=== PATIENT | female | born 1985 | race Caucasian/White ===

== ENCOUNTER 2022-07-08 07:12 | Outpatient (CLI) | payer OTHER, SELFPAY ==
--- NOTE | ~2022-07-08 | US_ITS ---
Pelvic ultrasound. Clinical History: First trimester , threatened miscarriage Technique: Realtime transabdominal and transvaginal scanning of the pelvis was performed. Color flow Doppler and Doppler spectral analysis were performed. Findings: The uterus is anteverted, and contains an intrauterine gestational sac. [place]-rump length o f 2 mm corresponds to an estimated gestational age of 5 weeks 5 days. The right ovary measures 2.7 x 1.7 x 2.0 cm. No significant right ovarian or adnexal mass is seen. The left ovary measures 1.8 x 0.7 x 1.7 cm. No significant left ovarian or adnexal mass is seen. There is no evidence of free fluid in the cul de sac. Impression: Intrauterine gestational sac with estimated gestational age of 5 weeks 5 days based on crown-rump silke gth. No cardiac activity seen. This early is of uncertain viability. Lack of cardiac activi ty may be related to the very early gestational age. Continued follow up with serial beta hCG advised . Consider short-term follow-up ultrasound in 5-7 days to reassess for further development pole and cardiac activity. Reviewed, dictated and finalized at [facility]. Impression: Intrauterine gestational sac with estimated gestational age of 5 weeks 5 days b ased on crown-rump length. No cardiac activity seen. This early is of uncertain viability. Lack of cardiac activity may be related to the very early gestational age. Continued follow up with serial beta hCG advised. Consider sh ort-term follow-up ultrasound in 5-7 days to reassess for further development f etal pole and cardiac activity.
== END 2022-07-08 07:13 | disposition home or self-care (01) ==
PROVIDERS: Visit Provider Obstetrics & Gynecology
DX: O20.0 Threatened abortion (principal); Z3A.01 Less than 8 weeks gestation of pregnancy
CPT/HCPCS: 36415; 76801; 76817; 85461; 86850; 86900; 86901

== ENCOUNTER 2022-07-10 13:31 | Outpatient (CLI) | payer OTHER, SELFPAY | END 2022-07-10 13:32 | disposition home or self-care (01) | LOC: ANHLAB 13:33 | PROVIDERS: Visit Provider Obstetrics & Gynecology | DX: O20.0 Threatened abortion (principal); Z3A.00 Weeks of gestation of pregnancy not specified | CPT/HCPCS: 36415; 84702 ==

== ENCOUNTER 2022-07-12 17:14 | Outpatient (CLI) | payer OTHER, SELFPAY | END 2022-07-12 17:15 | disposition home or self-care (01) | PROVIDERS: Visit Provider Obstetrics & Gynecology | DX: O20.0 Threatened abortion (principal); Z3A.00 Weeks of gestation of pregnancy not specified | CPT/HCPCS: 36415; 84702 ==

== ENCOUNTER 2022-07-22 10:11 | Outpatient (CLI) | payer OTHER, SELFPAY ==
--- NOTE | ~2022-07-22 | US_ITS ---
US breast RT limited INDICATION: Palpable right breast abnormality TECHNIQUE: Dedicated Limited right breast ultrasound COMPARISON: No prior studies for comparison. FINDINGS: At 7:00, 1 cm from the nipple, there is a minimally complicated 7 mm cyst with posterior ac oustic enhancement and no associated vascularity. At 9:00 in the area of palpable concern there are n o discrete masses. IMPRESSION: 1: Benign-appearing minimally complicated right breast cysts at 7:00, 1 cm from the nipple measuring 7 mm. No sonographic evidence for malignancy. Recommend follow-up clinical management with repeat ult rasound and/or mammogram as clinically warranted by physical examination changes. BI-RADS CATEGORY 2 - BENIGN FINDINGS Reviewed, dictated and finalized at location A. IMPRESSION: 1: Benign-appearing minimally complicated right breast cysts at 7:00, 1 cm from the nipple measuring 7 mm. No sonographic evidence for malignancy. Recommend f ollow-up clinical management with repeat ultrasound and/or mammogram as clinica lly warranted by physical examination changes. BI-RADS CATEGORY 2 - BENIGN FINDINGS
== END 2022-07-22 10:12 | disposition home or self-care (01) ==
LOC: ANHIMG 10:15
PROVIDERS: Visit Provider Advanced Practice Midwife
DX: N63.0 Unspecified lump in unspecified breast (principal)
CPT/HCPCS: 76642

== ENCOUNTER 2022-07-22 22:55 | Emergency (ER) | payer OTHER, SELFPAY ==
[2022-07-22 23:06] VITALS: BP 112/80; PULSE 92; RESP 18; TEMP 35.9; O2SAT 100
== END 2022-07-22 23:00 | disposition left against medical advice (07) ==
LOC: ANHED 23:19
DX: R11.2 Nausea with vomiting, unspecified (principal)
CPT/HCPCS: 99199

== ENCOUNTER 2023-02-25 06:36 | Inpatient (IN) | payer OTHER, SELFPAY ==
[2023-02-25] VITALS (233 sets, daily range): BP systolic 76–136; BP diastolic 48–111; PULSE 67–226; RESP 18; TEMP 36.4–37.3; O2SAT 86–100; BMI 25.3
--- NOTE | 2023-02-25 07:41 | LDADM ---
This patient, Maxim Mauricio, was admitted to Labor/Delivery/Recovery 104 on 02/25/23 at 06:36. Plans for labor, pain management and were discussed with patient. Patient/family oriented to hospital policies and general routines including ID bracelet, bed and alarms, visiting hours, pain management, procedures, bathroom and other care routines, personal items, smoking policy, room service/diet and guest tray routines, security routines, and visiting hours. Patient/Family are encouraged to report perceived risks to care and to ask questions if they do not understand what they are told or what they should do. See OBIX for further documentation.
[2023-02-25 07:47] LABS: Basophils Percent Auto 0.2 % (0.2-1.2); Eosinophils Absolute Auto 0.1 K/mm3 (0-0.3); Eosinophils Percent Auto 0.7 % (0-4.4); Hemoglobin 10.8 g/dL (12.0-15.0); Immature Granulocyte Absolute 0.07 K/mm3 (0.00-0.031); Immature Granulocyte Percent A 0.6 % (0-0.5); Lymphocytes Absolute Auto 1.83 K/mm3 (0.9-3.2); Mean Corpuscular HGB Conc 33.8 g/dl (32-36); Mean Corpuscular Hemoglobin 31.6 pg (26-34); Mean Corpuscular Volume 93.6 fl (80-100); Mean Platelet Volume 9.8 fl (7.4-10.4); Monocytes Absolute Auto 1.1 K/mm3 (0.1-0.6); Monocytes Percent Auto 8.8 % (2.6-8.5); Neutrophils Absolute Auto 9.1 K/mm3 (1.3-6.7); Neutrophils Percent Auto 74.7 % (45.5-73.1); Platelet Count Result 317 k/mm3 (150-375); Red Blood Count 3.42 M/mm3 (4.2-5.4); Red Cell Distribution Width 13.9 % (11.5-14.5); White Blood Count 12.2 K/mm3 (4.5-10.0)
--- NOTE | 2023-02-25 07:58 | WPDHPUPDATE1 ---
History and Physical Update Update Date/Time: 02/25/23 07:58 37-year-old Primiparous female with elective induction of labor at term. 80%, +1, cm. Reassuring status, Pitocin, epidural available, expectant management. History and Physical has been reviewed, including an updated exam of the patient. There are NO changes in the patient's condition. Risks, benefits, and alternatives have been discussed and questions answered. Patient agrees to proceed with procedure.
[2023-02-25] MEDS: OXYTOCIN 30 UNITS/NS 500 ML 30 UNITS/500 ML BAG 6 UNITS IV CONT (08:18)
[2023-02-25] MEDS: LACTATED RINGERS 1,000 ML 125 ML IV CONT ×2 (08:18→11:24)
[2023-02-25 08:30] LABS: HIV 1/2 Ab P24 Ag Result Negative (Negative)
--- NOTE | 2023-02-25 10:26 | WPDANESEPP ---
Anes - Eval Pre Procedure Procedure: labor epidural Date/Time: 02/25/23 10:26 Pre Op Diagnosis: Induction of Labor Patient Data Age: 37 Gender: F Height: 1.65 m Weight: 69 kg Last Vital Signs Temp 36.6 C 02/25/23 09:32 Pulse 86 02/25/23 10:18 Resp 18 02/25/23 08:00 BP 124/85 02/25/23 10:18 Pulse Ox 96 02/25/23 10:22 O2 Del Method Room Air 02/25/23 07:34 Allergies Allergy/AdvReac Type Severity Reaction Status Date / Time sulfamethoxazole Allergy Hives Verified 02/25/23 08:00 [From Bactrim] trimethoprim [From Bactrim] Allergy Hives Verified 02/25/23 08:00 Home Medications Medication Instructions Recorded Confirmed Type alprazolam 0.5 mg tablet 0.5 mg PO TID PRN Sleep 02/25/23 02/25/23 History cyclobenzaprine 10 mg tablet 10 mg PO TID PRN restless legs 02/25/23 02/25/23 History omeprazole 40 mg capsule,delayed 40 mg PO DAILY 02/25/23 02/25/23 History release Laboratory Tests 02/25/23 07:18 WBC 12.2 H K/mm3 (4.5-10.0) RBC 3.42 L M/mm3 (4.2-5.4) Hgb 10.8 L g/dL (12.0-15.0) Hct 32.0 L % (37.0-47.0) MCV 93.6 fl (80-100) MCH 31.6 pg (26-34) MCHC 33.8 g/dl (32-36) RDW 13.9 % (11.5-14.5) Plt Count 317 k/mm3 (150-375) MPV 9.8 fl (7.4-10.4) Immature Gran % (Auto) 0.6 H % (0-0.5) Neut % (Auto) 74.7 H % (45.5-73.1) Lymph % (Auto) 15.0 L % (18.3-44.2) [place] % (Auto) 8.8 H % (2.6-8.5) Eos % (Auto) 0.7 % (0-4.4) Baso % (Auto) 0.2 % (0.2-1.2) Lymph # (Auto) 1.83 K/mm3 (0.9-3.2) [place] # (Auto) 1.1 H K/mm3 (0.1-0.6) Eos # (Auto) 0.1 K/mm3 (0-0.3) Baso # (Auto) 0.0 K/mm3 (0.0-0.1) Abs Immat Gran (auto) 0.07 H K/mm3 (0.00-0.031) Absolute Neuts (auto) 9.1 H K/mm3 (1.3-6.7) Absolute Nucleated RBC 0.0 K/mm3 (0.0-0.012) Nucleated RBC % 0.0 % (0.0-0.2) RPR Pending HIV 1&2 Ab/P24 Ag 4thGn Negative (Negative) Blood Type O Positive Antibody Screen Negative Patient hx anesthesia problems: none Family hx anesthesia problems: none Results Review: All pre-operative results and documents have been reviewed as part of the pre-operative evaluation. [facility] Past Medical History Medical History (Updated 02/25/23 @ 10:26 by Jennifer De Guzman CRNA) Anxiety Asthma Social History Social History Smoking status: Current every day smoker Tobacco type: cigarettes Second hand tobacco smoke exposure: Yes Substance use: current Lack of Transportation: No Lack of Food: Never True Current Housing: I Have Housing Concerned About Future Housing: No Difficulty Paying Gas/Electric Bills: No Difficulty Paying for Meds: No Currently Unemployed: No Education: Associate Degree Difficulty w/ Childcare or Family Care: No Spiritual care concerns: No Exam Day of Procedure 02/25/23 10:26 Patient weight: overweight Heart: regular rate and rhythm Lungs: normal air movement Airway: Mallampati scale Neurological: alert and oriented
[2023-02-25 15:29] LABS: Rapid Plasma Reagin Non-Reactive (NonReactive)
[2023-02-25] MEDS: NICOTINE (*PBKC) 7 MG PATCH 1 PATCH TRANSDERM (18:52)
[2023-02-25] MEDS: LORATADINE 10 MG TABLET PO (19:34)
[2023-02-26] VITALS (36 sets, daily range): BP systolic 97–145; BP diastolic 61–126; PULSE 25–148; RESP 16–20; TEMP 36.4–36.7; O2SAT 81–100
[2023-02-26] MEDS: diphenhydrAMINE HCl INJ 50 MG/ML VIAL (00:25)
[2023-02-26] MEDS: LACTATED RINGERS 1,000 ML 125 ML IV CONT (00:27)
--- NOTE | 2023-02-26 01:52 | PM.OBPRVD ---
OB - Vaginal Delivery Note Procedure Delivery date: 02/26/23 Induction method: AROM and Per Pitocin Protocol Delivery monitor: External FHT and External Uterine Route of delivery: Laceration Description: Vaginal (2nd degree) Quantitative Blood Loss (ml): 100 Disposition: Floor Complications: No immediate complications Baby Date of : 02/26/23 Time of : 01:41 Weeks of gestation at delivery: 39 Infant gender: Female Weight (pounds): 6 Weight (ounces): 0 presentation: vertex score one minute: 8 score five minutes: 9
[2023-02-26] MEDS: ACETAMINOPHEN 500 MG TABLET 1000 MG PO ×3 (02:24→20:46)
[2023-02-26] MEDS: OXYTOCIN 30 UNITS/NS 500 ML 30 UNITS/500 ML BAG 125 UNITS IV CONT (02:25)
--- NOTE | 2023-02-26 04:33 | OBPPTRN ---
Patient transferred to post room # 281 via (wheelchair ). Support person present.
[2023-02-26] MEDS: IBUPROFEN 600 MG TABLET PO ×2 (05:43→12:36)
[2023-02-26] MEDS: PANTOPRAZOLE 40 MG TABLET PO ×2 (09:48→20:46)
[2023-02-26] MEDS: MULTIVIT/MIN/PREN/FOL AC/IRON TABLET 1 TAB PO (09:48)
[2023-02-26] MEDS: DOCUSATE SODIUM 100 MG CAPSULE PO (09:48)
[2023-02-26] MEDS: WITCH HAZEL 40 PADS 1 PAD TOPICAL (19:09)
[2023-02-26] MEDS: BENZOCAINE 20% AER SPR (*SP) 56 GM CAN 1 SPRAY TOPICAL (19:09)
[2023-02-26] MEDS: diphenhydrAMINE HCl CAP 25 MG CAPSULE PO (23:45)
[2023-02-27 00:30] VITALS: BP 108/66; PULSE 90; RESP 18; TEMP 36.8; O2SAT 99
[2023-02-27] MEDS: IBUPROFEN 600 MG TABLET PO ×3 (03:38→16:30)
[2023-02-27 03:59] LABS: Hematocrit 26.6 % (37.0-47.0); Hemoglobin 8.9 g/dL (12.0-15.0)
--- NOTE | 2023-02-27 07:23 | PM.OBPNVD ---
OB - PN: Subj Subjective Date/time seen: 02/27/23 07:23 Patient comments: no complaints, pain well controlled, incisional pain, tolerating diet and flatus present OB - PN: Obj Data Labs 02/27/23 03:39 Labs: Laboratory Results - last 24 hr 02/27/23 03:39 Hgb 8.9 L Hct 26.6 L OB - PN A/P Plan day: 1 Plan: routine care Comments: No problems, routine care Time Spent With Patient Time: Total time spent is greater than 50% in coordination of care (as documented) at patient's floor/unit and/or counseling patient: Exam Const: General: comfortable, no acute distress and alert Resp: Effort & Inspection: normal respiratory effort Auscultation: no crackles, no rales and no rhonchi Cardio: Rate: regular rate Heart sounds: no click, no murmurs and no rubs GI: Inspection: non-distended GI Palp: No Tenderness to palpation present (GI) Auscultation: normal bowel sounds Other: Incision - CDI Extrem: General: normal to inspection, no pedal edema and no calf tenderness
--- NOTE | 2023-02-27 07:24 | PM.OBDSVD ---
DS: Admitting Diagnosis Discharge Date February 27, 2023 Admitting Diagnosis term DS: Discharge Diagnosis Discharge Diagnosis (1) Term delivered: Code(s): O80 - Encounter for full-term uncomplicated delivery Status: Acute OB - DS: Summary OB Procedures : None OB Procedures Intrapartum: Spontaneous Vag Delivery OB Procedures: : None Peripartum Data Laceration Description: Vaginal (2nd degree) Time Spent with Patient Time attestation: Total time spent providing and/or coordinating discharge services: DS: Data Data Completed and Pending Labs on day of discharge: Labs from last 24 hours 02/27/23 03:39 Hgb 8.9 L Hct 26.6 L Discharge Plan Discharge Discharging Clinician: Abby Osorio Patient Disposition: Home, Self-Care Activity: pelvic rest Diet: regular Patient Instructions: Antibiotic Form, How to Stop Smoking (GEN), Cigarette Smoking and Your Health (GEN) Stand Alone Forms: General Discharge Information Follow-up/Referrals: Abby Osorio MD [Physician] - Discharge Medications: Continued cyclobenzaprine 10 mg tablet 10 mg PO TID PRN (Reason: restless legs) omeprazole 40 mg capsule,delayed release(DR/EC) 40 mg PO DAILY alprazolam 0.5 mg tablet 0.5 mg PO TID PRN (Reason: Sleep) Date of admission: 02/25/23 06:36 Primary Care Provider: PHYSICIAN,ASSISTED LIVING COORDINATOR Admitting Provider: Abby Osorio Attending physician on admission: Abby Osorio Condition: Stable
[2023-02-27] MEDS: DOCUSATE SODIUM 100 MG CAPSULE PO ×2 (08:30→16:30)
[2023-02-27] MEDS: PANTOPRAZOLE 40 MG TABLET PO ×2 (08:30→21:36)
[2023-02-27] MEDS: MULTIVIT/MIN/PREN/FOL AC/IRON TABLET 1 TAB PO (08:30)
[2023-02-27] MEDS: POLYSACCHARIDE IRON COMPLEX 150 MG CAPSULE PO ×2 (08:30→16:30)
[2023-02-27] MEDS: HYDROcodone/acetaminophen (*CRX) 5-325 MG TABLET 1 TAB PO ×3 (09:40→21:36)
[2023-02-27 10:00] VITALS: BP 116/68; PULSE 93; RESP 16; TEMP 36.4; O2SAT 98
--- NOTE | 2023-02-27 13:59 | WPDANLDPN2 ---
Anes-Prog Note L&D Date/Time: 02/27/23 13:59 Comfortable throughout: labor and delivery Neuraxial method: epidural Epidural/Spinal procedure site: clean & non-tender Neuro status: Neuro function grossly intact. Cardiovascular status: normal Respiratory status: normal Airway patency: baseline Mental status: baseline Post-Op hydration status: normal Vital Signs: Last Vital Signs Temp 36.8 C 02/27/23 00:30 Pulse 90 02/27/23 00:30 Resp 18 02/27/23 00:30 BP 108/66 02/27/23 00:30 Pulse Ox 99 02/27/23 00:30 O2 Del Method Room Air 02/26/23 08:00 Pain score (VAS): 2/10 Post-procedural complaints: pruritis Patient feedback: Patient satisfied with anesthetic care. Other findings: itching treated with antihistamine
[2023-02-27 16:30] VITALS: BP 118/72; PULSE 76; RESP 16; TEMP 36.6
[2023-02-27 19:25] VITALS: BP 104/55; PULSE 87; RESP 18
[2023-02-27] MEDS: WITCH HAZEL 40 PADS 1 PAD TOPICAL (21:37)
[2023-02-28] MEDS: HYDROcodone/acetaminophen (*CRX) 5-325 MG TABLET 1 TAB PO ×2 (04:03→07:50)
[2023-02-28] MEDS: IBUPROFEN 600 MG TABLET PO (04:04)
--- NOTE | 2023-02-28 04:20 | PC.NURSE ---
Patient viewed the discharge video Mother & Baby Care, The First Two Weeks . Patient was given the opportunity and encouraged to ask questions. Patient verbalized understanding of information shared and has been given the mother/baby guide for home reference.
[2023-02-28 07:30] VITALS: BP 103/63; PULSE 72; RESP 16; TEMP 36.6; O2SAT 98
[2023-02-28] MEDS: POLYSACCHARIDE IRON COMPLEX 150 MG CAPSULE PO (07:49)
[2023-02-28] MEDS: DOCUSATE SODIUM 100 MG CAPSULE PO (07:50)
--- NOTE | 2023-02-28 07:57 | P.PNOB_ITS ---
OB - PN: Subj Subjective Date/time seen: 02/28/23 07:57 Patient comments: no complaints, pain well controlled, incisional pain, tolerating diet and flatus present OB - PN: Obj Data Labs 02/27/23 03:39 OB - PN A/P Plan day: 1 Plan: routine care Comments: No problems, routine care Time Spent With Patient Time: Total time spent is greater than 50% in coordination of care (as documented) at patient's floor/unit and/or counseling patient: Exam Const: General: comfortable, no acute distress and alert Resp: Effort & Inspection: normal respiratory effort Auscultation: no c rackles, no rales and no rhonchi Cardio: Rate: regular rate Heart sounds: no click, no murmurs and no rubs GI: Inspection: non-distended GI Palp: No Tenderness to palpation present (GI) Auscultation: normal bowel sounds Other: Incision - CDI Extrem: General: normal to inspection, no pedal edema and no calf tenderness
--- NOTE | 2023-02-28 07:58 | P.DS_ITS ---
DS: Admitting Diagnosis Discharge Date February 28, 2023 Admitting Diagnosis term OB - DS: Summary OB Procedures : None OB Procedures Intrapartum: Spontaneous Vag Delivery OB Procedures: : None Peripartum Data Laceration Description: Vaginal (2nd degree) Time Spent with Patient Time attestation: Total time spent providing and/or coordinating discharge services: Discharge Plan Discharge Discharging Clinician: Abby Osorio Patient Disposition: Home, Self-Care Activity: pelvic rest Diet: regular Patient Instructions: Antibiotic Form, How to Stop Smoking (GEN), Cigarette Smoking and Your Health (GEN) Stand Alone Forms: General Discharge Information Follow-up/Referrals: Abby Osorio MD [Physician] - Discharge Medications: Continued cyclobenzaprine 10 mg tablet 10 mg PO TID PRN (Reason: restless legs) omeprazole 40 mg capsule,delayed release(DR/EC) 40 mg PO DAILY alprazolam 0.5 mg tablet 0.5 mg PO TID PRN (Reason: Sleep) Date of admission: 02/25/23 06:36 Primary Care Provider: PHYSICIAN,ENGINEER TECHNICIAN Admitting Provider: Abby Osorio Attending physician on admission: Abby Osorio Condition: Stable
[2023-03-01 11:15] VITALS: BP 122/81; PULSE 100; RESP 18; TEMP 36.9; O2SAT 100
== END 2023-02-28 11:12 | disposition home or self-care (01) | DRG 807 ==
LOC: ANHLDR 06:43 → ANHOB2 02-26 04:36
PROVIDERS: Admitting Provider Obstetrics & Gynecology; Visit Provider Obstetrics & Gynecology
DX: O36.5930 Maternal care for other known or suspected poor fetal growth, third trimester, not applicable or unspecified (principal); Z37.0 Single live birth; Z3A.39 39 weeks gestation of pregnancy; O70.1 Second degree perineal laceration during delivery
CPT/HCPCS: 36415; 85014; 85018; 85025; 86592; 86703; 86850; 86900; 86901; A9270; G0432; J1200; J2590; J2795; J7120

== ENCOUNTER 2024-07-10 05:28 | Emergency (ER) | payer OTHER, SELFPAY ==
--- NOTE | ~2024-07-10 | CT_ITS ---
EXAMINATION: CT facial bones wo con DATE: 07/10/2024 05:56 INDICATION: Face injury. TECHNIQUE: Computed tomography (CT) of the facial bones and maxillofacial region was performed withou t intravenous contrast. Automated exposure control and iterative reconstruction technique were employ ed. The dose-length product was 327.97 mGy-cm. COMPARISON: None. FINDINGS: There is left periorbital soft tissue swelling with hematoma. The orbits are normal. There is rightward deviation of the nasal septum. No fracture. There is extensive dental disease. There is mild cervical spondylosis. IMPRESSION: 1. No fracture. 2. Extensive dental disease. Reviewed, dictated and finalized at location A.
--- NOTE | ~2024-07-10 | XR_ITS ---
EXAMINATION: XR hand LT min 3V DATE: 07/10/2024 06:10 INDICATION: Left hand injury and pain. TECHNIQUE: 3 views of left hand were obtained. COMPARISON: None. FINDINGS: Alignment is normal. No fracture. Joint spaces are normal. IMPRESSION: 1. No fracture. Reviewed, dictated and finalized at location A. IMPRESSION: 1. No fracture.
--- NOTE | ~2024-07-10 | CT_ITS ---
EXAMINATION: CT wrist LT wo con DATE: 07/10/2024 06:33 INDICATION: Left wrist injury. TECHNIQUE: Computed tomography (CT) of the left wrist was performed without intravenous contrast. Aut omated exposure control and iterative reconstruction technique were employed. The dose-length product was 365.01 mGy-cm. COMPARISON: Left wrist radiographs 07/10/2024 FINDINGS: Alignment is normal. There is a nondisplaced fracture involving dorsal cortex of distal rad ius. Ulnar styloid is normal. Joint spaces are normal. IMPRESSION: 1. Nondisplaced fracture involving dorsal cortex of distal radius. Reviewed, dictated and finalized at location A.
--- NOTE | ~2024-07-10 | CT_ITS ---
EXAMINATION: CT brain wo con DATE: 07/10/2024 05:56 INDICATION: Head injury. TECHNIQUE: Computed tomography (CT) of the head was performed without intravenous contrast. The mA wa s adjusted according to patient size. Iterative reconstruction technique was employed. The dose-lengt h product was 681.00 mGy-cm. COMPARISON: None FINDINGS: There is no intracranial hemorrhage, acute infarction, or abnormal intracranial mass lesion . The ventricles are normal in size. The orbits are normal. The paranasal sinuses are clear. The mast oid air cells are normal. There is left periorbital soft tissue swelling with hematoma. IMPRESSION: 1. Normal brain. Reviewed, dictated and finalized at location A. IMPRESSION: 1. Normal brain.
--- NOTE | ~2024-07-10 | XR_ITS ---
EXAMINATION: XR wrist LT min 3V DATE: 07/10/2024 06:11 INDICATION: Left wrist injury and pain. TECHNIQUE: 4 views of left wrist were obtained. COMPARISON: None. FINDINGS: Alignment is normal. There is a possible nondisplaced fracture involving Angelito's tubercle of distal radius seen on a single view. There is mild osteoarthritis of first carpometacarpal joint. IMPRESSION: 1. Possible nondisplaced fracture involving Angelito's tubercle of distal radius seen on a single view. Consider CT. Reviewed, dictated and finalized at location A.
--- OUTSIDE RECORDS SUMMARY | 2024-07-10 05:31 | XMS_ITS | Clinical Summary ---
Author Organization [facility] Address [address] [place] [address] Care Team Providers Care Enterprise Services Manager Name Role Phone Raza Schmidt MD Primary Care Provider [phone] Allergies Active Allergy Reactions Criticality Noted Date Comments Adhesive Tape-Silicones Other (See comments) 07/27/2011 Reaction: Rash, Sulfamethoxazole-Trimethop rim Hives,Unknown Medium 03/18/2015 Latex Rash Medium 08/11/2022 Prednisone Prochlorperazine Unknown Sulfasalazine Urticaria Medium 02/22/2015 Medications ALPRAZolam (ALPRAZolam Intensol) 1 mg/mL concentrate take 0.25 milliliter by oral route 3 times every day mixed with water, juice, soda, soda-like beverage, applesauce or pudding 0 0 5 Active rizatriptan (MAXALT) 5 mg tablet 5 mg. 0 0 5 Active albuterol (PROVENTIL,VENT MALDONADO) 2.5 mg /3 mL (0.083 %) nebulizer solution inhale 3 milliliter by nebulization route 3 times every day 0 vial 0 5 Active oxyCODONE-aceta minophen (ROXICET) 5-325 mg/5 mL solution take 5 milliliter by oral route every 6 hours as needed 0 0 5 Active nystatin 100,000 unit/mL suspension take 5 milliliter by oral route 4 times every day 0 0 5 Active montelukast (SINGULAIR) 10 mg tablet TAKE ONE TABLET BY MOUTH EVERY DAY 30 10 5 Active fluticasone-steven anterol (BREO ELLIPTA) 200-25 mcg/dose diskus inhaler puff 1 by oral route every day 3 Inhaler 3 7 Active buprenorphine-n aloxone (SUBOXONE) 8-2 mg per SL tablet TAKE 1 TABLET UNDER TONGUE TWICE A DAY. 1 8 Active cetirizine (ZyrTEC) 10 mg tablet Active dextroamphetami ne-amphetamine (ADDERALL) 30 mg tablet Take 1 tablet (30 mg total) by mouth daily 0 8 Active triamcinolone (KENALOG) 0.1 % ointmentIndicat ions:Other eczema Apply topically 2 (two) times a day as needed for rash. 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 Overview (07/23/2016): Sleep disorder breathing Chronic obstructive pulmonary disease 07/18/2015 Overview (07/23/2016): Chronic asthmatic bronchitis Tobacco smoking behavior - finding 07/18/2015 Overview (07/23/2016): Smoking addiction Atopic rhinitis 07/18/2015 Overview (07/23/2016): Allergic rhinitis, unspecified allergic rhinitis type Abnormal computed tomography scan 12/05/2014 Overview (07/23/2016): Abnormal chest CT Rhinitis 12/05/2014 Overview (07/23/2016): Rhinitis Chronic pain 06/10/2014 Overview (07/23/2016): Chronic pain Migraine 01/10/2012 Overview (07/23/2016): Migraine Endometriosis 01/10/2012 Overview (07/23/2016): Endometriosis Encounters Date Type Department Care Team Description 04/16/2024 3:45 PM GINGER FARMER Office Visit [facility] Care at [address] [address] Aretha Rojas NP Influenza A (Primary Dx) from Last 3 Months Surgical History Surgery Date Site/Laterality Comments LAPAROSCOPY laproscopy OTHER SURGICAL HISTORY endometerosis: laproscopy x 3 OTHER SURGICAL HISTORY Hysteroscopies, cysts CA LAPS ABD PRTM&OMENTUM DX W/WO SPEC BR/WA SPX Laparoscopy (Diagnostic) - [phone] (Added by TW Conv) [place] UNLISTED PX FEMALE GENITA L SYSTEM NONOBSTETRICAL Gynecologic Surgery - cyst removal (Added by TW Conv) Medical History Medical History Date Comments Hx Other Medical endometerosis; Comments: AOB 06/10/2014 - Sleep apnea Sleep apnea Asthma Asthma Anxiety disorder Anxiety Hx Other Medical Endometriosis, chronic bronchitis; Comments: THS 12/05/2014 - Hx Other Medical Syncope; Commen ts: THS 12/05/2014 - Hx Other Medical Thrush; Comment s: THS 12/05/2014 - Endometriosis of uterus Adenomyo sis - (Added by TW Conv) Family History Medical History Relation Name Comments Colon cancer Maternal Grandmother Cancer, colon; COPD Mother COPD; Breast cancer Mother's Sister 1 Cancer, b reast; Ovarian cancer Mother's Sister 2 Ovarian cancer; Relation Name Status Comments Maternal Grandmother Mother Mother's Sister 1 Mother's Sister 2 Social History Tobacco Use Types Packs/Day Years Used Date Smoking Tobacco: Every Day Smokeless Tobacco: Former Comments:Smoking History Pac ks/day: 1 Packs Alcohol Use Standard Drinks/Week Comments Yes 0 (1 standard drink = 0.6 oz pur e alcohol) Comments No Sex and Gender Information Value Date Recorded Sex Assigned at Not on file Legal Sex Female 9:02 AM GINGER FARMER Gender Identity Not on file Sexual Orientation Not on file Obstetrics History Last Filed Vital Signs Vital Sign Reading Time Taken Comments Blood Pressure 110/68 04/16/2024 4:11 PM GINGER FARMER Pulse 80 04/16/2024 4:11 PM GINGER FARMER Temperature 37.1 C (98.8 F) 04/16/2024 4:11 PM GINGER FARMER Respiratory Rate 18 04/16/2024 4:11 PM GINGER FARMER Oxygen Saturation 98% 04/16/2024 4:11 PM GINGER FARMER Inhaled Oxygen Concentration - - Weight 61.7 kg (136 lb) 04/16/2024 4:11 PM GINGER FARMER Height 165.1 cm (5' 5 ) 04/05/2019 1:00 AM GINGER FARMER Body Mass Index 22.63 04/05/2019 1:00 AM GINGER FARMER Plan of Treatment Health Maintenance Due Date Last Done Comments Cervical Cancer Screening 1985 Depression Screening 1985 Hepatitis C Screening 1985 Varicella Vaccines (1 of 2 - 13+ 2-dose series) 1998 Hepatitis B Screening 12/02/2003 Regular Well Visit/Exam 18-64 12/02/2003 Pneumococcal vaccine <65 (1 of 2 - PCV) 2004 Influenza Vaccine (#1) 2023 01/03/2023 DTaP/Tdap/Td Vaccine (2 - Td or Tdap) 01/03/2033 01/03/2023 HPV Vaccines Aged Out No longer eligi ble based on patient's age to complete this topic Procedures Procedure Name Priority Date/Time Associated Diagnosis Comments POCT RAPID RSV (CPT 36296) Routine 04/16/2024 4:28 PM GINGER FARMER Influenza A POCT RAPID STREP Routine 04/16/2024 4:25 PM GINGER FARMER Influenza A POC INFLUENZA A/B, COVID-19 ANTIGEN Routine 04/16/2024 4:24 PM GINGER FARMER Influenza A from Last 3 Months Results * POCT rapid RSV (04/16/2024 4:28 PM GINGER FARMER) Rapid RSV, POC Negative Negative Lot Number 1 QC Control Line Acceptable Swab 04/16/2024 4:28 PM GINGER FARMER Aretha Rojas REDIPPER POINT OF CARE TEST ORDERABLES F inal Result * POCT rapid strep A (04/16/2024 4:25 PM GINGER FARMER) Rapid Strep A, POC Negative Negative Swab 04/16/2024 4:25 PM GINGER FARMER Aretha Rojas REDIPPER POINT OF CARE TEST ORDERABLES F inal Result * (ABNORMAL) POC Influenza A/B, COVID-19 antigen (04/16/2024 4:24 PM GINGER FARMER) Influenza A Ag, POC Positive(A) Negative [facility] Influenza B Ag, POC Negative Negative [facility] COVID-19 Ag POC Presumptive Negative Presumptive Negative, Invalid [facility] Nasal 04/16/2024 4:24 PM GINGER FARMER Aretha Rojas REDIPPER POINT OF CARE TEST ORDERABLES F inal Result Performing Organization Address City/State/[facility] Co de Phone Number [facility] [address] [place] [address], [facility] from Last 3 Months Insurance [employer] OPEN ACCESS [employer] OPEN ACCESS Care Teams Enterprise Services Manager Relationship Specialty Start Date End Date Raza Schmidt MD PCP - General 12/25/14
--- OUTSIDE RECORDS SUMMARY | 2024-07-10 05:31 | XMS_ITS | Clinical Summary ---
Author Organization [facility] Address [address] [place] [address] Care Team Providers Care Iron Handler Name Role Phone Cory Ho MD Primary Care Provider [phone] Source Comments [facility] Affiliates and Associated Physician Practices is amultiple site organization consisting of ambulatory clinics and hospital sitesin [place], [place], [place] and [place]. This disclosure is being madepursuant to the Care Everywhere program and may not contain all information available regarding this patient. Last updated 18.[facility] Allergies Active Allergy Reactions Criticality Noted Date Comments Adhesive Sensitivity 07/27/2011 Sulfamethoxazole W-Trimethoprim 04/2014 Latex Rash Medium 08/11/2022 Sulfa Drugs Urticaria 02/22/2015 Medications * Be aware that medications may not be up to date on this document. Alwaysverify current medications with the patient. Medication Sig Dispensed Refills Start Date End Date Status predniSONE (DELTASONE) 50 MG tablet Take 1 Tab by mouth once daily 5 Tab 0 02/22/2015 Active Additional Information Patient not taking.Reported on 08/11/2022 ibuprofen (MOTRIN) 600 MG tablet Take 1 Tab by mouth every 6 hours as needed for Pain 20 Tab 0 03/19/2015 Active Additional Information Patient not taking.Reported on 08/11/2022 Vit-DSS-Fe Fum-FA ( vitamin with iron) tabletIndications:Pr egnancy Take 1 (one) tablet by mouth once daily Reasons: Active albuterol HFA (Proventil; Ventolin; Proair) 108 (90 Base) MCG/ACT inhalerIndications:A sthma Inhale 2 (two) puffs by mouth every 6 hours as needed for Shortness of Breath, Wheezing or Cough Reasons: Asthma Active metoclopramide (Reglan) 5 MG tablet Take 1 (one) tablet by mouth 3 times daily before meals Active Active Problems Problem Noted Date Diagnosed Date History of endometrial ablation 09/14/2022 Advanced maternal age, primi in second trimester, antepartum 09/14/2022 Advanced maternal age, 1st , first trim rani 08/10/2022 Family History Medical History Relation Name Comments Cancer - Lung Maternal Grandfather CAD (Coronary Artery Disease) Mother Cancer - Breast Mother Hypertension Mother Cancer - Lung Paternal Grandfather Cancer - Breast Paternal Grandmother Cancer - Colon Paternal Grandmother Cancer - Lung Paternal Grandmother Cancer - Ovarian Paternal Grandmother Relation Name Status Comments Maternal Grandfather Mother Paternal Grandfather Paternal Grandmother Social History Tobacco Use Types Packs/Day Years Used Date Smoking Tobacco: Every Day Cigarettes 0.3 20 Smokeless Tobacco: Never Tobacco Cessation:Ready to Q uit: Not Asked; Counseling Given: Not Answered Alcohol Use Standard Drinks/Week Comments Not Currently 0 (1 standard drink = 0.6 oz pur e alcohol) doesnt drink Sex and Gender Information Value Date Recorded Sex Assigned at Not on file Gender Identity Not on file Sexual Orientation Not on file Last Filed Vital Signs Vital Sign Reading Time Taken Comments Blood Pressure 121/72 08/11/2022 1:11 PM CDT Pulse 100 08/11/2022 1:11 PM CDT Temperature 36.8 C (98.3 F) 03/19/2015 12:23 AM [facility] Respiratory Rate 16 03/19/2015 12:23 AM [facility] Oxygen Saturation 99% 03/19/2015 12:23 AM [facility] Inhaled Oxygen Concentration - - Weight 58.5 kg (129 lb) 08/11/2022 1:11 PM CDT Height 165.1 cm (5' 5 ) 08/11/2022 1:11 PM CDT Body Mass Index 21.47 08/11/2022 1:11 PM CDT Plan of Treatment Health Maintenance Due Date Last Done Comments PAP SMEAR 1985 HEPATITIS C SCREENING 11/27/2003 DTAP/TDAP/TD VACCINES (1 - Tdap) 2004 HEPATITIS B VACCINE (1 of 3 - 19+ 3-dose series) 2004 PNEUMOCOCCAL VACCINE (1 of 2 - PCV) 2004 COVID-19 VACCINE (2 - 2023-2 5 season) 2023 04/27/2021 INFLUENZA VACCINE (#1) 2023 DEPRESSION SCREENING 04/18/2024 ZOSTER VACCINE (1 of 2) 12/02/2035 HIV SCREENING Completed 08/23/2022 HIB VACCINE Aged Out No longer eligi ble based on patient's age to complete this topic HPV VACCINE Aged Out No longer eligi ble based on patient's age to complete this topic MENINGOCOCCAL (Group B) VACC INE SHARED DECISION-MAKING Aged Out No longer eligibl e based on patient's age to complete this topic MENINGOCOCCAL GROUPS A/C/Y/W VACCINE Aged Out No longer eligible b ased on patient's age to complete this topic Advance Directives * FULL RESUSCITATION (Latest Code Status on File) Date Activated Date Inactivated Comments 11/01/2012 4:18 PM 11/02/2012 6:44 PM Care Teams Iron Handler Relationship Specialty Start Date End Date Cory Ho MD [address] [place] [address] PCP - General 05/14/20
--- OUTSIDE RECORDS SUMMARY | 2024-07-10 05:31 | XMS_ITS | Data Portability ---
Author Organization [facility] [place] Address [address] [place] [address] [place] [address] Assessment No assessment recorded. Plan of Treatment Reminders Order Date Submit Date Provider Last Modified By Organization Details Last Modified Time Details Appointments None recorded. Lab test, urine 2022 023 [email or web address] [place], [address], [place], [address], 3 14:42:43 Referral None recorded. Procedures None recorded. Surgeries None recorded. Imaging US, obstetric, biophysical profile 2022 023 [email or web address] [place], [address], [address], [place], [address], 3 22:05:40 Medication Orders Adderall 20 mg tablet 2022 023 [place] [facility] #[id number], [address] [facility], [place], [place], [id number], 3 14:42:41 metronidazo le 0.75 % (37.5 mg/5 gram) vaginal gel 2022 023 [facility] [id number], [address] [facility], [place], [place], [id number], 3 17:31:03 Adderall 20 mg tablet 2022 023 AJMES [facility] #[id number], [address] [facility], [place], [place], [id number], 17:37:17 Patient TargetsNo targets recorded. Patient InstructionsNo instructions recorded. Reason for Referral None Reported. Results Created Date Observation Date Name Description Value Unit Range Abnormal Flag Note LastModifiedBy Organization Detail LastModifiedTime 02/11/2002/10/2023 CULTU RE: GROUP B STREP SCREE N result report SEE RESULT S BELOW Test: Cultu re: Group B Strep Scree n - Vagin al/Re ctal Speci men Sourc e: Vagin a/Rec ana Speci men Type: Vagin al/Re ctal Speci men Date: 02/10 3:01 PM Resul t Date: 02/13 2:01 PM Resul t Statu s: Final resul t Abnor mal: No Resul ting Lab: [facility] [address] [facility] [address] Tel: CULTU RE ----- ----- ----- --- No Group B strep isola rand at 2 days (yao ctive broth enhan cemen t) Not Available [facility] (Lab) [address] [facility], [place], [address], 02/13/2023 15:03:59 04/12/20 23 04/12/2023 CT/GC AND TRICH OMONA S VAGIN ITZEL (RRNA ), URINE chlamydia trachomatis, PCR Negati ve negati ve Not Available [facility] (Lab) [address] [facility], [place], [address], 04/13/2023 11:45:44 04/12/20 23 04/12/2023 CT/GC AND TRICH OMONA S VAGIN ITZEL (RRNA ), URINE neisseria gonorrhoeae, PCR Negati ve negati ve Not Available [facility] (Lab) [address] [facility], [place], [address], 04/13/2023 11:45:44 04/12/20 23 04/12/2023 CT/GC AND TRICH OMONA S VAGIN ITZEL (RRNA ), URINE trichomonas vaginalis ribosomal RNA (rrna) Negati ve negati ve Not Available [facility] (Lab) [address], [place], [address], 04/13/2023 11:45:44 04/12/2004/12/2023 pregn renato test, urine HCG negati ve Not Available [place] [address], [place], [address], 04/12/2023 14:42:29 01/25/2001/24/2023 US, obste tric, follo w-up No observ ation record ed. [email or web address] [place] [address], [place], [address], 01/24/2023 11:16:07 01/25/2001/24/2023 US, obste tric, follo w-up No observ ation record ed. [email or web address] [place] [address], [place], [address], 01/24/2023 20:26:36 02/01/2001/31/2023 US, obste tric, bioph ysica l profi le + non-s tress test No observ ation record ed. [email or web address] [place] [address], [place], [address], 01/31/2023 18:29:39 02/01/2001/31/2023 US, doppl er, umbil ical arter y veloc imetr y No observ ation record ed. [email or web address] [place] [address], [place], [address], 01/31/2023 18:29:30 02/01/20 23 01/31/2023 US, obste tric, bioph ysica l profi le + non-s tress test No observ ation record ed. [email or web address] [address], [place], [address], 01/31/2023 22:07:22 02/09/2002/08/2023 US, obste tric, bioph ysica l profi le + non-s tress test No observ ation record ed. [facility] [address], [place], [address], 02/08/2023 12:37:42 02/09/2002/08/2023 US, doppl er, umbil ical arter y veloc imetr y No observ ation record ed. [facility] [address], [place], [address], 02/08/2023 12:37:57 02/09/2002/08/2023 US, obste tric, bioph ysica l profi le + non-s tress test No observ ation record ed. [email or web address] [address], [place], [address], 02/09/2023 08:04:38 02/15/2002/14/2023 US, obste tric, follo w-up No observ ation record ed. [email or web address] [place] [address], [place], [address], 02/14/2023 17:51:40 02/15/2002/14/2023 US, obste tric, bioph ysica l profi le + non-s tress test No observ ation record ed. [email or web address] [place] [address], [place], [address], 02/14/2023 17:51:31 02/15/2002/14/2023 US, doppl er, umbil ical arter y veloc imetr y No observ ation record ed. [email or web address] [place] [address], [place], [address], 02/14/2023 17:51:22 02/15/20 23 02/14/2023 US, obste tric, follo w-up No observ ation record ed. [email or web address] [address], [place], [address], 02/18/2023 15:18:57 02/22/20 23 02/21/2023 US, obste tric, bioph ysica l profi le No observ ation record ed. [facility] [address], [place], [address], 02/21/2023 18:26:25 02/22/20 23 02/21/2023 , obste tric, bioph ysica l profi le No observ ation record ed. JAMES [address], [place], [address], 02/22/2023 04:27:04 Result Notes None recorded. Problems Name Problem SNOMED Code Status Onset Date Resolution Date Notes Provider Name and Address Organization Details Recorded Time Pregnanc y 49187396 Completed 202203/02/2023 Jonathan mann, [facility] 3 10:31:11 Asthma 921583807 Completed mild occas. inhaler Jonathan mann, [facility] 3 10:31:06 Advanced maternal age 424312123 Completed Jonathan mann, [facility] 3 10:31:06 Tobacco user 712579493 Active Jonathan [facility], [facility] 3 10:31:06 Amphetam ine in urine 434258102 Active Alvaro Osorio MD [address], [place], [address], [facility] 3 23:26:01 Advanced maternal age 815832166 Active Jonathan mann, [facility] 3 10:31:06 Asthma 012403189 Active mild occas. inhaler Jonathan [facility], [facility] 3 10:31:06 History of endometr ial ablation [id number] 64573 Completed Sofie Holloway MD [address], [place], [address], [facility] 3 18:02:52 Tobacco user 292128451 Completed Jonathan [facility], [facility] 3 10:31:06 Amphetam ine in urine 948856786 Completed Alvaro Osorio MD [address], [place], [address], [facility] 3 23:26:01 History of endometr iosis 4872455409 4459447 Completed presacra l neurecto my- needs growth US per MFM. she prefers to not see MFM for these US [facility], [facility] 3 10:31:06 Attentio n deficit hyperact ivity disorder 885665342 Active 2022 Not Available [employer] 3 11:58:19 growth restrict ion 12274181 Completed weekly [facility]pp [facility] 3 10:31:06 Problem Notes None recorded. Procedures Surgical History Date Name Laterality Status Provider Name and Address Organization Details Recorded Time 04/12/20 23 IUD Insertion completed Alvaro Osorio MD [address], [place], [address], [facility] 04/12/2023 14:50:09 01/01/20 15 Laparoscopy completed Nataly Cowan [facility] 07/13/2022 17:49:27 04/18/19 13 Laparoscopy completed Nataly Cowan [facility] 07/13/2022 17:49:23 04/18/19 11 Laparoscopy completed Natalydmitri Cowan [facility] 07/13/2022 17:49:12 04/18/19 08 laparoscopic ablation of pelvic endometriosis completed Sofie Holloway MD [address], [place], [address], [place] [facility] 10/04/2022 18:02:29 Colonoscopy completed Nataly Cowan [facility] 07/13/2022 15:09:39 Laparoscopy completed Priya Muse [facility] 02/21/2023 11:08:46 Imaging Results Imaging Date Name Status LastModified by Organiz ation Details LastModified Time 01/24/2023 US, obstetric, follow-up completed [address], [place], [address], 01/24/2023 11:16:07 01/24/2023 US, obstetric, follow-up completed [email or web address] [address], [place], [address], 01/24/2023 20:26:36 01/31/2023 US, obstetric, biophysical profile + non-stress test completed [email or web address] [place] [address], [place], [address], 01/31/2023 18:29:39 01/31/2023 US, doppler, umbilical artery velocimetry completed [facility]30 [place] [address], [place], [address], 01/31/2023 18:29:30 01/31/2023 US, obstetric, biophysical profile + non-stress test completed [email or web address] [address], [place], [address], 01/31/2023 22:07:22 02/08/2023 US, obstetric, biophysical profile + non-stress test completed [place] [address], [place], [address], 02/08/2023 12:37:42 02/08/2023 US, doppler, umbilical artery velocimetry completed [place] [address], [place], [address], 02/08/2023 12:37:57 02/08/2023 US, obstetric, biophysical profile + non-stress test completed [email or web address] [address], [place], [address], 02/09/2023 08:04:38 02/14/2023 US, obstetric, follow-up completed [place] [address], [place], [address], 02/14/2023 17:51:40 02/14/2023 US, obstetric, biophysical profile + non-stress test completed [place] [address], [place], [address], 02/14/2023 17:51:31 02/14/2023 US, doppler, umbilical artery velocimetry completed [place] [address], [place], [address], 02/14/2023 17:51:22 02/14/2023 US, obstetric, follow-up completed [email or web address] [address], [place], [address], 02/18/2023 15:18:57 02/21/2023 US, obstetric, biophysical profile completed [place] [address], [place], [address], 02/21/2023 18:26:25 02/21/2023 US, obstetric, biophysical profile completed JAMES [address], [place], [address], 02/22/2023 04:27:04 Procedure Notes None recorded. Medical Equipment None Reported. Allergies Allergen ID Allergen Name Allergen Category Reaction Reaction Severity Criticality Documentation Date Start Date Code Code System Note Provider Name and Address Organization Details Recorded Time Bactrim medicatio n hives moderate Not available 07/13/20222015 34924 9 RxNorm Nataly Cowan [facility] 15:09:37 Medications Name Sig Start Date Stop Date Status Note LastModified by Organization Details LastModified Time cyclobenzap rine 10 mg tablet TAKE 1 TABLET BY MOUTH THREE TIMES A DAY active Not Available Not Available No t Available Mirena 21 mcg/24 hr (up to 8 years) 52 mg intrauterin e device Take 1 device by intrauter ine route. 2022 active Not Available Not Available Not Avai lable clindamycin HCl 300 mg capsule TAKE 1 CAPSULE BY MOUTH TWICE DAILY FOR 7 DAYS DIRECTED 08/23 completed Not Available Not Available Not Available albuterol sulfate 2.5 mg/3 mL (0.083 %) solution for nebulizatio n USE 1 VIAL IN NEBULIZER EVERY 4 HOURS active Not Available Not Available No t Available azithromyci n 250 mg tablet TAKE 2 TABLETS BY MOUTH FOR 1 DAY THEN TAKE 1 TABLET BY MOUTH DAILY FOR 4 DAYS DIRECTED 07/13 completed Not Available Not Available Not Available hydrocodone 5 mg-acetamin ophen 325 mg tablet TAKE 1 TABLET BY MOUTH EVERY 6 HOURS NEEDED FOR PAIN 07/13 completed Not Available Not Available Not Available metronidazo le 0.75 % (37.5 mg/5 gram) vaginal gel INSERT 1 APPLICATO RFUL VAGINALLY EVERY DAY active Not Available Not Available No t Available prednisone 20 mg tablet TAKE 2 TABLETS BY MOUTH EVERY DAY WITH FOOD FOR 5 DAYS. START TOMORROW 07/13 completed Not Available Not Available Not Available omeprazole 40 mg capsule,del ayed release TAKE 1 CAPSULE BY MOUTH EVERY DAY active Not Available Not Available No t Available alprazolam 0.5 mg tablet TAKE 1 TABLET BY MOUTH THREE TIMES A DAY active Not Available Not Available No t Available amoxicillin 875 mg tablet TAKE 1 TABLET BY MOUTH TWICE DAILY active Not Available Not Available No t Available metoclopram terrell 5 mg tablet TAKE 1 TABLET BY MOUTH FOUR TIMES DAILY NEEDED active Not Available Not Available No t Available benzonatate 100 mg capsule TAKE 1 CAPSULE BY MOUTH EVERY 8 HOURS NEEDED 07/13 completed Not Available Not Available Not Available triamcinolo ne acetonide 0.1 % topical ointment APPLY TOPICALLY TO THE AFFECTED AREA EVERY 12 HOURS SPARINGLY NEEDED FOR ITCHING active Not Available Not Available No t Available dextroamphe tamine-amph etamine 20 mg tablet TAKE 2 TABLETS BY MOUTH EVERY DAY active Not Available Not Available No t Available codeine 10 mg-guaifene sin 100 mg/5 mL oral liquid TAKE 5 ML BY MOUTH EVERY 6 HOURS NEEDED 07/13 completed Not Available Not Available Not Available methylpredn isolone 4 mg tablets in a dose pack FOLLOW PACKAGE DIRECTION S 07/13 completed Not Available Not Available Not Available albuterol sulfate HFA 90 mcg/actuati on aerosol inhaler INHALE 2 PUFFS BY MOUTH EVERY 4 HOURS NEEDED active Not Available Not Available No t Available doxycycline hyclate 100 mg tablet TAKE 1 TABLET BY MOUTH TWICE DAILY FOR 10 DAYS 07/13 completed Not Available Not Available Not Available naproxen 500 mg tablet TAKE 1 TABLET BY MOUTH TWICE DAILY WITH FOOD active Not Available Not Available No t Available Tylenol Extra Strength 500 mg capsule 500 mg twice a day by oral route. 2022 active Not Available Not Available Not Avai lable ciprofloxac in 0.3 %-dexametha sone 0.1 % ear drops,suspe nsion active Not Available Not Available Not Available active Not Available Not Avai lable Not Available Vitals Date Recorded Body height Body mass index (BMI) Provider Name and Address Organization Details Last Updated DateTime 02/21/2023 160.66 cm 25.7 kg/m2 Priya Muse [facility] 02/21/2023 11:08:28 Date Recorded Body height Body mass index (BMI) Body weight Systolic blood pressure Diastolic blood pressure Provider Name and Address Organization Details Last Updated DateTime 03/09/2023 160.66 cm 23.7 kg/m2 04185.97 g 135 mm[Hg] 93 mm[Hg] [facility] 3 16:58:15 Date Recorded Body height Body mass index (BMI) Body weight Systolic blood pressure Diastolic blood pressure Provider Name and Address Organization Details Last Updated DateTime 03/28/2023 160.66 cm 23.9 kg/m2 00105.56 g 127 mm[Hg] 75 mm[Hg] [facility] 3 14:24:14 Date Recorded Body height Body mass index (BMI) Body weight Systolic blood pressure Diastolic blood pressure Provider Name and Address Organization Details Last Updated DateTime 04/12/2023 160.66 cm 24.4 kg/m2 20042.34 g 122 mm[Hg] 81 mm[Hg] [facility] 3 14:38:00 Date Recorded Body height Body mass index (BMI) Body weight Systolic blood pressure Diastolic blood pressure Provider Name and Address Organization Details Last Updated DateTime 05/23/2023 160.66 cm 24.4 kg/m2 70426.34 g 132 mm[Hg] 91 mm[Hg] [facility] 4 15:41:54 Social History Question Answer Notes LastModified by Organizat ion Details LastModified Time Tobacco Smoking Status Current Every Day Smoker Zelda Watters [facility] 03/09/2023 16:48:07 Do You Have An Advance Directive? No [email or web address] Information not available 07/13/2022 What Is Your Level Of Alcohol Consumption? None [email or web address] Information not available 07/13/2022 If You Are , What Was Your Level Of Alcohol Consumption Prior To ? Occasional Information not available 03/09/2023 How Many Years Have You Consumed Alcohol? 5 Information not available 07/13/2022 Are You Blind Or Do You Have Difficulty Seeing? No [email or web address] Information not available 07/13/2022 What Is Your Level Of Caffeine Consumption? Moderate [email or web address] Information not available 07/13/2022 In The 14 Days Before Symptom Onset, Have You Had Close Contact With A Laboratory-confir med COVID-19 While That Case Was Ill? No [email or web address] Information not available 07/13/2022 In The 14 Days Before Symptom Onset, Have You Had Close Contact With A Person Who Is Under Investigation For COVID-19 While That Person Was Ill? No [email or web address] Information not available 07/13/2022 Have You Been To An Area Known To Be High Risk For COVID-19? No [email or web address] Information not available 07/13/2022 Are You Deaf Or Do You Have Serious Difficulty Hearing? No [email or web address] Information not available 07/13/2022 What Type Of Diet Are You Following? REGULAR [email or web address] Information not available 07/13/2022 What Is The Highest Grade Or Level Of School You Have Completed Or The Highest Degree You Have Received? 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 No [email or web address] Information not available 07/13/2022 Do You Use Protection During Sex? No [email or web address] Information not available 07/13/2022 Do You Use Your Seat Belt Or Car Seat Routinely? Yes [email or web address] Information not available 07/13/2022 Do You Have Smoke And Carbon Monoxide Detectors In Your Home? Yes Information not available 07/13/2022 At What Age Did You Start Smoking Tobacco? 17 [email or web address] Information not available 07/13/2022 How Much Tobacco Do You Smoke? 0.5 PPD [email or web address] Information not available 07/13/2022 Do You Feel Stressed (tense, Restless, Nervous, Or Anxious, Or Unable To Sleep At Night)? [id number] Information not available 07/13/2022 Do You Use Any Illicit Or Recreational Drugs? No Information not available 07/13/2022 Do You Use Sunscreen Routinely? Yes [email or web address] Information not available 07/13/2022 Has Tobacco Cessation Counseling Been Provided? No [email or web address] Information not available 03/09/2023 How Many Years Have You Smoked Tobacco? 13 [email or web address] Information not available 07/13/2022 Have You Used IV Drugs? No Information not available 07/13/2022 Do You Or Have You Ever Used Any Other Forms Of Tobacco Or Nicotine? No [email or web address] Information not available 03/09/2023 Sex: Unknown Functional Status Question Answer Note LastModified by Organizat ion Details LastModified Time Do you have difficulty walking or climbing stairs? No Information not available 03/09/2023 Are you able to walk? YESWOREST [email or web address] Information not available 07/13/2022 Are you able to care for yourself? Yes Information not available 03/09/2023 Do you have difficulty dressing or bathing? No [email or web address] Information not available 03/09/2023 What is your exercise level? Occasional [email or web address] Information not available 07/13/2022 Mental Status None recorded. Family History Relationship Description Onset Age of this Age Resolved Age Notes LastModified by Organization Details LastModified Time Maternal Aunt Heart disease [email or web address] Not available 2022 15:55:31 Maternal Aunt Malignant tumor of breast [email or web address] Not available 2022 16:48:05 Mother Disorder of lung 45 Not available 2022 16:48:05 Mother Hypercholest erolemia [email or web address] Not available 2022 16:48:05 Mother Heart disease Not available 2022 16:48:05 Mother Blood coagulation disorder [email or web address] Not available 2022 16:48:05 Mother Diabetes mellitus [email or web address] Not available 2022 16:48:05 Mother Asthma [email or web address] Not available 02/21/2023 11:08:42 Maternal Grandmother Malignant tumor of breast Not available 2022 16:48:05 Maternal Grandmother Malignant tumor of colon [email or web address] Not available 2022 16:48:05 Maternal Grandmother Heart disease [email or web address] Not available 2022 16:48:05 Maternal Uncle Heart disease [email or web address] Not available 2022 16:48:05 Medical History Condition Response Allergies (Food, seasonal, environmental ) Y Other Y Breast Cancer N Drug/Latex Allergies/Reactions N Blood Transfusion N Dermatologic Disorders N Lung Disease N Defects or Inherited Disease N Breast Problem N Gestational Diabetes N Hematologic disorders N Anesthesia Complications N History of STI N Deep Vein Thrombosis N Polycystic ovary syndrome N Anxiety Disorder N Autoimmune disease N Arthritis N Infertility N Polyps N Acid Reflux (GERD) Y History of abnormal pap N Cancer N Stroke N Varicosities N Neurologic/Epilepsy N Endometriosis Y High Cholesterol N Headaches Y Fibromyalgia N Kidney Disease N Heart Problems N Kidney or Bladder Problems N Thyroid Problems N GI Problems N Eating Disorder N Anemia N Art (IVF or FET) N Psychiatric Illness N Ovarian Cancer N Diabetes N Pulmonary (TB, Asthma) N Hepatitis/Liver Disease N No Past Medical History N Eczema N Urinary Tract Infection N Abuse/Domestic Violence N Asthma Y Trauma/Violence N Depression/ depression N Heart Disease N Pre-Eclampsia N Hypertension N Osteoporosis N Thrombophilias N Gynecological History Statement/Question Response Abnormal Pap N Flow Heavy Date of Last Mammogram Date of LMP 05/26/2022 N On BCP's at Conception? N STIs/STDs N Was last menstrual period normal Y HPV Vaccine N Duration of Flow (days) 7 Current Control Method IUD Are cycles usually normal Y Frequency of Cycle (Q days) 28 Sexually Active? Y Menses Monthly Y Date of DEXA bone scan Age of first menstrual cycle 12 Date of Last Pap Smear Sexual Problems? N LMP Approximate Desired Control Method None N Obstetrics History GPAL:G 1 P 1 0 0 1 Type Value Full Term 1 Living 1 Total 1 Immunizations Vaccine Type Date Status Note Provider Jimenez helton and Address Organization Details Recorded Time Tdap 01/03/2023 completed Priya mann [facility] 04/12/2023 14:38:04 Influenza, split virus, quadrivalent, PF 01/03/2023 completed Priya mann [facility] 04/12/2023 14:38:04 Past Encounters Encounter ID Performer Location Encounter Start Date Encounter Closed Date Diagnosis/Indication Diagnosis SNOMED-CT Code Diagnosis ICD10 Code Diagnosis Note [id number] Juani Matthew [place] [address] [address] 07/13/2022 13:51:23 07/13/2022 14:32:39 Uncertain viability of [id number] O36.80X9 Z3A.01 [id number] Yudy Jim [place] [address],[place] [address] 07/13/2022 13:51:53 07/14/2022 17:50:48 Amenorrhea 31061833 N91.2 Breast lump 66410466 N63 .0 Diagnostic u/s ordered. If nl will rtc in 6 weeks. If abnormal imaging will schedule with specialist nicci If nl imaging but lump persists at 6 week f/u will need to see specialist . Pt will call us 2 business days after imaging to ensure we have received the results. test positive [id number] Z32.01 Risk factors addressed: Tobacco Cessation, Safe Sexual Practices, environmen juni, work hazards, travel restrictio ns, seat belt use.Eat a health well balanced diet, avoid alcohol, tobacco, and street drugs.Enga ge in daily low impact exercise, avoid temperatur e extremes, and cat, rodent, and bird feces.Avoi d travel to areas where zika virus is a concern.Of fered cf/sma/nip t. Desires at 12 weeks. Handouts given and discussed with patient.Ch ildbirth classes recommende d.New OB sheet given.If previous , counseling .Pt verbalizes that she understand s the importance of above instructio ns.All questions were answered.P atient reminded to have annual well woman examinatio n and address [facility] . [id number] Alvaro Osorio MD [place] [address],[place] [address] 08/23/2022 09:31:22 08/23/2022 11:04:02 Routine care 133083513 Z34.01 [id number] [facility] [address],[place] [address] 08/23/2022 09:32:24 08/23/2022 10:14:58 screening [id number] Z36.82 [id number] [facility] [address],[place] [address] 10/04/2022 16:26:39 10/05/2022 15:42:05 screening for malformation 202472173 Z36.3 [id number] Sofie Holloway MD [place] [address],[place] [address] 10/04/2022 16:26:39 10/05/2022 15:42:38 Routine care 510768600 Z34.92 Advanced m aternal age 803279986 O09.512 Amphetamine in urine 275 318416 R82.5 History of endometrial ablation 0608647445 80570 N99.85 Tobacco user [id number] Z 72.0 [id number] [facility] [address],[place] [address] 11/01/2022 13:59:28 11/01/2022 14:52:52 Advanced maternal age 428992879 O09.512 O99.322 Z3A.22 [id number] Sofie Holloway MD [place] [address],[place] [address] 11/01/2022 13:59:46 11/01/2022 15:34:27 Advanced maternal age 185890697 O09.512 O99.322 Z3A.22 [id number] [facility] [address],[place] [address] 11/29/2022 11:05:06 11/29/2022 11:48:40 Pre-existing maternal disease complicating [id number] 6106 O99.891 O09.512 O99.322 Z3A.26 [id number] Sofie Holloway MD [place] [address],[place] [address] 11/29/2022 11:05:53 11/29/2022 13:55:32 Gastroesophageal reflux disease without esophagitis 655924719 K21.9 Routine an tenatal care 050392153 Z34.92 [id number] [facility] [address],[place] [address] 12/27/2022 09:32:21 12/27/2022 11:35:17 Advanced maternal age 638756117 O09.512 O99.322 Z3A.30 [id number] Sofie Holloway MD [place] [address],[place] [address] 1 12/27/2022 09:33:32 12/27/2022 13:11:38 Advanced maternal age 645855862 O09.512 O99.322 Z3A.30 Routine an tenatal care 824549832 Z34.92 [id number] Alvaro Osorio MD [place] [address],[place] [address] 01/24/2023 10:29:55 01/24/2023 11:54:23 Routine care 078809441 Z34.01 [id number] [facility] [address],[place] [address] 1 01/24/2023 10:31:32 01/24/2023 11:23:53 Advanced maternal age 462323038 O09.513 O36.5930 O99.893 Z3A.34 [id number] [facility] [address],[place] [address] 01/31/2023 12:39:33 01/31/2023 13:31:46 Small for gestational age fetus 470566467 O36.5930 O09.513 Z3A.35 [id number] [facility] [address],[place] [address] 02/08/2023 09:30:01 02/08/2023 10:08:49 condition affecting obstetrical care of mother 089164564 O36.5930 Z3A.36 [id number] Alvaro Osorio MD [place] [address],[place] [address] 1 02/08/2023 09:30:32 02/08/2023 19:53:20 [id number] DAVY LATHAM MD [place] [address],[place] [address] 02/10/2023 12:45:38 02/10/2023 14:10:03 condition affecting obstetrical care of mother 767078343 O36.93X0 Gestation period, 37 weeks 36925034 Z3A.37 [id number] Lula Fields [place] [address],[place] [address] 02/14/2023 14:59:12 02/14/2023 16:11:26 Small for gestational age fetus 120902742 O36.5930 O09.513 Z3A.37 [id number] Alvaro Osorio MD [place] [address],[place] [address] 02/14/2023 14:59:50 02/14/2023 16:30:34 Routine care 809416579 Z34.01 [id number] Autumn Mark [place] [address],[place] [address] 1 02/21/2023 10:26:39 02/21/2023 11:11:38 Small for gestational age fetus 665280146 O36.5930 O09.513 Z3A.38 [id number] Alvaro Osorio MD [place] [address],[place] [address] 02/21/2023 10:27:07 02/21/2023 11:34:02 Routine care 237697174 Z34.01 [id number] Alvaro Osorio MD [place] [address],[place] [address] 03/09/2023 16:47:55 03/09/2023 17:43:07 Bacterial vaginosis 514835564 N76.0 37-year-ol d who presents 1 week for concerns about discharge and unusual feeling in her vagina with bubbles the vagina appears normal. Suture lines intact. She had a second-deg ree laceration . She also need refills on her Adderall. We spent 20 minutes face-to-fa ce. More than 50% was counseling . Attention deficit hyperactivity disorder 811388756 F90.9 [id number] Alvaro Osorio MD [place] [address],[place] [address] 03/28/2023 14:17:42 03/28/2023 14:57:32 Attention deficit hyperactivity disorder 420554278 F90.9 care 85365852 8 Z39.2 patient is a 37-year-ol d female who presents for follow-up. She is bottle feeding, she is bleeding still, she is agreed to Mirena IUD, she is not had intercnour se. She is doing well. Her baby is doing very well. We agreed to place Mirena in 2 weeks. She will follow-up for well-woman exam In 2 months [id number] Alvaro Osorio MD [place] [address],[place] [address] 04/12/2023 14:17:06 04/12/2023 14:51:22 Contraception care management 078375690 Z30.9 IUD inserted without complicati ons, she tolerated it well. [id number] Alvaro Osorio MD [place] [address],[place] [address] 05/23/2023 14:53:30 05/23/2023 16:08:09 Contraception care management 224770205 Z30.9 This patient is a 37 female who presents for IUD check. [facility] She has no complaints . She denies any excessive bleeding or pain. She has had some cramping and some spotting. Otherwise, she feels that is going well and wants to continue her IUD. has bleeding since the of her child 3 months ago. We will continue to observe. If bleeding persists will come for treatment. Has breast mass that was previously known to be present. Ultrasound of the breasts was ordered today. Health Concerns Section Related Observation LastModified by Organization Detai ls LastModified Time None Recorded Concern Status LastModified by Organization Details LastModified Time None Recorded Advance Directives Directive N: Payers Encounter Date Sequence Insurance Name Policy Number Policy Zepeda Covered Member ID Zepeda Member ID Guarantor Name 02/21/2023 1 [employer] - ALLIED BENEFITS - OPEN ACCESS Maxim Mauricio [id number] Maxim Mauricio 03/09/2023 1 [employer] - ALLIED BENEFITS - OPEN ACCESS Maxim Mauricio [id number] Maxim Mauricio 03/28/2023 1 [employer] - ALLIED BENEFITS - OPEN ACCESS Maxim Mauricio [id number] Maxim Mauricio 04/12/2023 1 [employer] - ALLIED BENEFITS - OPEN ACCESS Maxim Mauricio [id number] Maxim Mauricio 04/12/2023 1 [place]ONE Maxim Mauricio [id number] Maxim Mauricio 05/23/2023 1 [place] [facility] [place] OF PUBLIC AID NONE Maxim Mauricio [id number] Maxim Mauricio 05/23/2023 1 [id number] Maxim Mauricio [id number] Maxim Mauricio Notes Date Note Type Note Provider Name and Address Organization Details Recorded Time 03/09/2023 text/html 37-year-old who presents 1 week for concerns about discharge and unusual feeling in her vagina with bubbles the vagina appears normal. Suture lines intact. She had a second-degree laceration. She also need refills on her Adderall. We spent 20 minutes [id number]. More than 50% was counseling. Alvaro Osorio MD [address], [place], [address], [facility] 03/09/2023 17:42:04 03/28/2023 text/html patient is a 37-year-old female who presents for follow-up. She is bottle feeding, she is bleeding still, she is agreed to Mirena IUD, she is not had intercnourse. She is doing well. Her baby is doing very well. We agreed to place Mirena in 2 weeks. She will follow-up for well-woman exam In 2 months Alvaro Osorio MD [address], [place], [address], [facility] 03/28/2023 14:51:43 04/12/2023 text/html Patient presents for IUD insertion. procedure has been explained to the patient in detail. She understands the procedure. Risks, benefits, and alternatives have been explained. She is has completed the informed consent process and is ready to proceed. Alvaro Osorio MD [address], [place], [address], [facility] 04/12/2023 14:50:37 05/23/2023 text/html This patient is a 37 female who presents for IUD check. She had a XXX IUD inserted approximately 1 month ago. She has no complaints. She denies any excessive bleeding or pain. She has had some cramping and some spotting. Otherwise, she feels that is going well and wants to continue her IUD. has bleeding since the of her child 3 months ago. We will continue to observe. If bleeding persists will come for treatment. Has breast mass that was previously known to be present. Ultrasound of the breasts was ordered today. Alvaro Osorio MD [address], [place], [address], [facility] 05/23/2023 15:57:01 OBGyn Episode Ob Episode Information Episode Created Date Number of Fetuses Patient Bloodtype Patient rh Status Prepregnancy Weight lbs Domestic Partner Domestic Partner Phone Father Name [employer] Status 08/24/19 23 1 O Positive 133 CLOSED Fetus Data First Name Last Name Admitted to NICU Weight (g) Sex Living Outcome Pediatric Complications Fetus ID Race Codes Race Delivery Type 2721.55 2 F Full Term [id number] Vaginal Delivery Problems Problem Notes Problem Name Start Date End Date Resolution Snomed Code Not e growth restriction 17666009 weekly bpp and doppler Advanced maternal age 185406332 Asthma 637675966 mild occas . inhaler History of endometriosis [id number] presacral neurectomy- needs growth US per MFM. she prefers to not see MFM for these US unless needed Tobacco user [id number] Donavon Calculation Initial Donavon Date Initial Exam Date Initial Exam Provider Initial Ultrasound Date Last Menstrual Period Date Ultra Sound Weeks Gestation 03/02/2023 08/23/2022 07/08/2022 05/26/2022 5 Eighteen To Twenty Week Donavon Update Ultra Sound Date Fundal Height At Umbil Quickening Date Ultra Sound Latest Weeks Gestation Final Donavon Confirmed By Final Donavon Confirmed Date Final Donavon Date Ultra Sound Latest Days Gestation 0 [email or web address] 08/23/2022 03/02/20 23 0 Pre- Flowsheet Flowsheet Date 08/23/2022 Manzano Score Blood Edema Fundus Height Fundus Units Glucose Ketones Leukocytes Nitrite Labor Signs Protein Cervic Dilation Cervic Effacement Cervic Station Type Weight in lbs Pre/Post Dialysis Refused BP Diastolic BP Location Tested BP Systolic BP Type Fetus Heart Rate Present Fetus Movement Comments Flowsheet Date 08/23/2022 Manzano Score Blood Edema Fundus Height Fundus Units Glucose Ketones Leukocytes Nitrite Labor Signs Protein Cervic Dilation Cervic Effacement Cervic Station 12 Type Weight in lbs Pre/Post Dialysis Refused Weight 130.839121736039 BP Diastolic BP Location Tested BP Systolic BP Type 80 R arm 120 sitting Fetus Heart Rate Present A 153 Fetus Movement Comments This patient is a 36-year-ol d 1 at 12 weeks gestation who presents for initial care. Her medical, surgical, obstetric history is unremarkable. Talked about care in detail. She is vaccinated for COVID. She was given vaccine recommendations. She is doing genetic testing. Talked about advanced maternal age a little bit. Flowsheet Date 10/04/2022 Manzano Score Blood Edema Fundus Height Fundus Units Glucose Ketones Leukocytes Nitrite Labor Signs Protein Cervic Dilation Cervic Effacement Cervic Station Type Weight in lbs Pre/Post Dialysis Refused BP Diastolic BP Location Tested BP Systolic BP Type Fetus Heart Rate Present Fetus Movement Comments Flowsheet Date 10/04/2022 Manzano Score Blood Edema Fundus Height Fundus Units Glucose Ketones Leukocytes Nitrite Labor Signs Protein Cervic Dilation Cervic Effacement Cervic Station neg none none trace Type Weight in lbs Pre/Post Dialysis Refused Weight 131.600300811748 BP Diastolic BP Location Tested BP Systolic BP Type 71 105 Fetus Heart Rate Present A 145 Fetus Movement A Yes Comments Doing fine. For clarificatio n- pt did NOT have endometrial ablation- she had ablation of endometriosis and presacral neurectomy. per [facility] growth US q 4 weeks. She would like to do these here. She is taking adderall 2-3 times per week because MFM said it was ok. Stopped vyvanse 4-5 mos ago. She is down to under 1/2ppd from about 2ppd. Encouraged to pick a quit date and come up with quit plan to get there. US today anatomy complete and wnl, normal growth. Will schedule growth US. Flowsheet Date 11/01/2022 Manzano Score Blood Edema Fundus Height Fundus Units Glucose Ketones Leukocytes Nitrite Labor Signs Protein Cervic Dilation Cervic Effacement Cervic Station Type Weight in lbs Pre/Post Dialysis Refused BP Diastolic BP Location Tested BP Systolic BP Type Fetus Heart Rate Present Fetus Movement Comments Flowsheet Date 11/01/2022 Manzano Score Blood Edema Fundus Height Fundus Units Glucose Ketones Leukocytes Nitrite Labor Signs Protein Cervic Dilation Cervic Effacement Cervic Station none 20 Type Weight in lbs Pre/Post Dialysis Refused Weight 132.765556834635 BP Diastolic BP Location Tested BP Systolic BP Type 68 103 Fetus Heart Rate Present A 140 Fetus Movement A Yes Comments Doing well. Tobacco down to 3 cigs per day, quit date in 2 weeks. Limiting ADHD med. US today EFW 22%. GERD bad even with Pepcid BID- will try omeprazole. GCT next/. Flowsheet Date 11/29/2022 Manzano Score Blood Edema Fundus Height Fundus Units Glucose Ketones Leukocytes Nitrite Labor Signs Protein Cervic Dilation Cervic Effacement Cervic Station Type Weight in lbs Pre/Post Dialysis Refused BP Diastolic BP Location Tested BP Systolic BP Type Fetus Heart Rate Present Fetus Movement Comments Flowsheet Date 11/29/2022 Manzano Score Blood Edema Fundus Height Fundus Units Glucose Ketones Leukocytes Nitrite Labor Signs Protein Cervic Dilation Cervic Effacement Cervic Station none Type Weight in lbs Pre/Post Dialysis Refused Weight 134.621403186680 BP Diastolic BP Location Tested BP Systolic BP Type 75 115 Fetus Heart Rate Present A 135 Fetus Movement A Yes Comments Doing fine except GERD still bad, never got the script for omeprazole. Sent. Has not quit smoking, but down to a couple per day. GCT today. Rh pos. US today 26%. Flowsheet Date 12/27/2022 Manzano Score Blood Edema Fundus Height Fundus Units Glucose Ketones Leukocytes Nitrite Labor Signs Protein Cervic Dilation Cervic Effacement Cervic Station Type Weight in lbs Pre/Post Dialysis Refused BP Diastolic BP Location Tested BP Systolic BP Type Fetus Heart Rate Present Fetus Movement Comments Flowsheet Date 12/27/2022 Manzano Score Blood Edema Fundus Height Fundus Units Glucose Ketones Leukocytes Nitrite Labor Signs Protein Cervic Dilation Cervic Effacement Cervic Station none Type Weight in lbs Pre/Post Dialysis Refused Weight 141.200222394854 BP Diastolic BP Location Tested BP Systolic BP Type 75 112 Fetus Heart Rate Present A 150 Fetus Movement A Yes Comments dOING WELL. GCT wnl. US toda y 24%. GERD much better with omeprazole. Some RLS trouble, will try magnesium supplements. Flowsheet Date 01/24/2023 Manzano Score Blood Edema Fundus Height Fundus Units Glucose Ketones Leukocytes Nitrite Labor Signs Protein Cervic Dilation Cervic Effacement Cervic Station 34 Type Weight in lbs Pre/Post Dialysis Refused Weight 143.415682568327 BP Diastolic BP Location Tested BP Systolic BP Type 77 R arm 116 sitting Fetus Heart Rate Present A 145 Fetus Movement Comments no complaints, no problems, routine care, Tdap vaccinated received, ultrasound today revealed continued growth, to start testing Flowsheet Date 01/24/2023 Manzano Score Blood Edema Fundus Height Fundus Units Glucose Ketones Leukocytes Nitrite Labor Signs Protein Cervic Dilation Cervic Effacement Cervic Station Type Weight in lbs Pre/Post Dialysis Refused BP Diastolic BP Location Tested BP Systolic BP Type Fetus Heart Rate Present Fetus Movement Comments Flowsheet Date 01/31/2023 Manzano Score Blood Edema Fundus Height Fundus Units Glucose Ketones Leukocytes Nitrite Labor Signs Protein Cervic Dilation Cervic Effacement Cervic Station Type Weight in lbs Pre/Post Dialysis Refused BP Diastolic BP Location Tested BP Systolic BP Type Fetus Heart Rate Present Fetus Movement Comments Flowsheet Date 02/08/2023 Manzano Score Blood Edema Fundus Height Fundus Units Glucose Ketones Leukocytes Nitrite Labor Signs Protein Cervic Dilation Cervic Effacement Cervic Station Type Weight in lbs Pre/Post Dialysis Refused BP Diastolic BP Location Tested BP Systolic BP Type Fetus Heart Rate Present Fetus Movement Comments Flowsheet Date 02/08/2023 Manzano Score Blood Edema Fundus Height Fundus Units Glucose Ketones Leukocytes Nitrite Labor Signs Protein Cervic Dilation Cervic Effacement Cervic Station Type Weight in lbs Pre/Post Dialysis Refused BP Diastolic BP Location Tested BP Systolic BP Type Fetus Heart Rate Present Fetus Movement Comments Flowsheet Date 02/10/2023 Manzano Score Blood Edema Fundus Height Fundus Units Glucose Ketones Leukocytes Nitrite Labor Signs Protein Cervic Dilation Cervic Effacement Cervic Station Type Weight in lbs Pre/Post Dialysis Refused Weight 145.407243598324 BP Diastolic BP Location Tested BP Systolic BP Type 85 125 Fetus Heart Rate Present A 130 Fetus Movement Comments Doing well, baby active. No ctx, LOF, VB. No swelling. Discussed weekly testing for decreasing EFW percentile, reassuring this week. Repeat weekly. GBS done today. Flowsheet Date 02/14/2023 Manzano Score Blood Edema Fundus Height Fundus Units Glucose Ketones Leukocytes Nitrite Labor Signs Protein Cervic Dilation Cervic Effacement Cervic Station Type Weight in lbs Pre/Post Dialysis Refused BP Diastolic BP Location Tested BP Systolic BP Type Fetus Heart Rate Present Fetus Movement Comments Flowsheet Date 02/14/2023 Manzano Score Blood Edema Fundus Height Fundus Units Glucose Ketones Leukocytes Nitrite Labor Signs Protein Cervic Dilation Cervic Effacement Cervic Station 38 Type Weight in lbs Pre/Post Dialysis Refused Weight 147.528929080919 BP Diastolic BP Location Tested BP Systolic BP Type 77 R arm 117 sitting Fetus Heart Rate Present A 156 Fetus Movement A Yes Comments complaints, no problems, rou enoch care, small head circumference, likely not a concern at this point in the . Flowsheet Date 02/21/2023 Manzano Score Blood Edema Fundus Height Fundus Units Glucose Ketones Leukocytes Nitrite Labor Signs Protein Cervic Dilation Cervic Effacement Cervic Station 35 1cm 50% +1 Type Weight in lbs Pre/Post Dialysis Refused BP Diastolic BP Location Tested BP Systolic BP Type Fetus Heart Rate Present A 145 Fetus Movement Comments growth restriction, to deliver Tuesday, 4 days, cervix is 1 cm, very soft, head is very low Flowsheet Date 02/21/2023 Manzano Score Blood Edema Fundus Height Fundus Units Glucose Ketones Leukocytes Nitrite Labor Signs Protein Cervic Dilation Cervic Effacement Cervic Station Type Weight in lbs Pre/Post Dialysis Refused BP Diastolic BP Location Tested BP Systolic BP Type Fetus Heart Rate Present Fetus Movement Comments Menstrual History Last Menstrual Date Menses Monthly On Bcp Conception Prior Menses Frequency Hcg Plus Date Menarche Onset Age 0205/26/2022 Genetic Screening And Infection History Question Response Note Mental Retardation/Autism false Patient's Age Will Be 35 Years Or Older At Estim ated Date of Delivery false Thalassemia (Moldovan, Kazakh, Mediterranean, Or Background): MCV < 80 false Neural Tube Defect (Meningomyelocele, Spina Bifi da, Or Anencephaly) false Congenital Heart Defect false Down Syndrome false Gera-Sachs (eg, Anglican, Cajun, German-Wasatch) f alse Yulisa Disease false Sickle Cell Disease Or Trait () false Hemophilia Or Other Blood Disorders false Muscular Dystrophy false Cystic Fibrosis false Wanda's Chorea false Intellectual Disability/Autism false If Yes, Was Person Tested For Fragile X? false Other Inherited Genetic Or Chromosomal Disorder false Maternal Metabolic Disorder (eg, Type 1 Diabetes , PKU) false Patient Or Baby's Father Had A Child With Defects Not Listed Above false Recurrent Loss, Or A Stillbirth false Medications (including Suppl ements, Vitamins, Herbs, OTC Drugs), Illicit/Recreational Drugs, Alcohol false If Yes, Agent(s) And Strength/Dosage false Any Other Genetic History false Live With Someone With TB Or Exposed To TB false Patient Or Partner Has History Of Genital Herpes false Rash Or Viral Illness Since Last Menstrual Perio d false History Of STD, Gonorrhea, Chlamydia, HPV, Syphi lis false Other Infection History false History of HIV false History of Hepatitis false Prior GBS-infected child false Hemoglobinopathy Or Carrier false Other Structural Defect false Recent Travel History Outside of Country false Delivery Information Delivery Date Delivery Type Labor Anesthesia Weeks Gestation Incision Type Labor Labor Length Hrs Delivered By Post Complications Tubal Sterilization Discharge Date Comments 3 Induce d [facility] 39.3 false Alvaro Osorio MD IUGR, AMA, Asthma, tobacco use Discharge Information Feeding Method Contraceptive Method Maternal HG B and HCT Levels
--- OUTSIDE RECORDS SUMMARY | 2024-07-10 05:31 | XMS_ITS | Referral Summary ---
Author Organization [facility] Address [address] [place] [address] Care Team Providers Care Manager Case Name Role Phone Raza Schmidt MD Primary Care Provider [phone] Encounters Date Type Department Care Team Description 04/16/2024 3:45 PM SHEET TAKER Office Visit [facility] Convenient Care at [address] [address] Aretha Rojas NP Influenza A (Primary Dx) from Last 3 Months Allergies Active Allergy Reactions Criticality Noted Date [...] (07/23/2016): Migraine Endometriosis 01/10/2012 Overview (07/23/2016): Endometriosis Social History Tobacco Use Types Packs/Day Years Used Date Smoking Tobacco: Every Day Smokeless Tobacco: Former Comments:Smoking History Pac ks/day: 1 Packs Alcohol Use Standard Drinks/Week Comments Yes 0 (1 standard drink = 0.6 oz pur e alcohol) Comments No Sex and Gender Information Value Date Recorded Sex Assigned at Not on file Legal Sex Female 9:02 AM SHEET TAKER Gender Identity Not on file Sexual Orientation Not on file Last Filed Vital Signs Vital Sign Reading Time Taken Comments Blood Pressure 110/68 04/16/2024 4:11 PM SHEET TAKER Pulse 80 04/16/2024 4:11 PM SHEET TAKER Temperature 37.1 C (98.8 F) 04/16/2024 4:11 PM SHEET TAKER Respiratory Rate 18 04/16/2024 4:11 PM SHEET TAKER Oxygen Saturation 98% 04/16/2024 4:11 PM SHEET TAKER Inhaled Oxygen Concentration - - Weight 61.7 kg (136 lb) 04/16/2024 4:11 PM SHEET TAKER Height 165.1 cm (5' 5 ) 04/05/2019 1:00 AM SHEET TAKER Body Mass Index 22.63 04/05/2019 1:00 AM SHEET TAKER Plan of Treatment Not on file Procedures Procedure Name Priority Date/Time Associated Diagnosis Comments POCT RAPID RSV (CPT 33089) Routine 04/16/2024 4:28 PM SHEET TAKER Influenza A POCT RAPID STREP Routine 04/16/2024 4:25 PM SHEET TAKER Influenza A POC INFLUENZA A/B, COVID-19 ANTIGEN Routine 04/16/2024 4:24 PM SHEET TAKER Influenza A from Last 3 Months Results * POCT rapid RSV (04/16/2024 4:28 PM SHEET TAKER) Rapid RSV, POC Negative Negative Lot Number 1 QC Control Line Acceptable Swab 04/16/2024 4:28 PM SHEET TAKER Aretha Rojas FARMWORKER MACHINE POINT OF CARE TEST ORDERABLES F inal Result * POCT rapid strep A (04/16/2024 4:25 PM SHEET TAKER) [facility] Rapid Strep A, POC Negative Negative Swab 04/16/2024 4:25 PM SHEET TAKER us Aretha Rojas FARMWORKER MACHINE POINT OF CARE TEST ORDERABLES F inal Result * (ABNORMAL) POC Influenza A/B, COVID-19 antigen (04/16/2024 4:24 PM SHEET TAKER) [facility] Influenza A Ag, POC Positive(A) Negative [facility] Influenza B Ag, POC Negative Negative [facility] COVID-19 Ag POC Presumptive Negative Presumptive Negative, Invalid [facility] Nasal 04/16/2024 4:24 PM SHEET TAKER Aertha Rojas FARMWORKER MACHINE POINT OF CARE TEST ORDERABLES F inal Result Performing Organization Address City/State/[facility] Co de Phone Number [facility] [address] [place] [address], [facility] from Last 3 Months Insurance [employer] OPEN ACCESS [employer] OPEN ACCESS Care Teams Manager Case Relationship Specialty Start Date End Date Raza Schmidt MD PCP - General 12/25/14
--- OUTSIDE RECORDS SUMMARY | 2024-07-10 05:31 | XMS_ITS | Clinical Summary ---
Author Organization [facility] Address [address] [place] [address] Care Team Providers Care Foreign Service Officer Name Role Phone None, Provider MD Primary Care Provider Unavaila ble Allergies Active Allergy Reactions Criticality Noted Date Comments Sulfamethoxazole-Trimethoprim Anaphylaxis High 10/29 Social History Tobacco Use Types Packs/Day Years Used Date Smoking Tobacco: Every Day Cigarettes 0.5 15 Smokeless Tobacco: Never Alcohol Use Standard Drinks/Week Comments Yes 0 (1 standard drink = 0.6 oz pur e alcohol) sometime Comments No Sex and Gender Information Value Date Recorded Sex Assigned at Not on file Legal Sex Female 8:25 PM CDT Gender Identity Not on file Sexual Orientation Not on file Last Filed Vital Signs Vital Sign Reading Time Taken Comments Blood Pressure 135/100 10/29/2020 8:14 PM CDT Pulse 111 10/29/2020 8:14 PM CDT Temperature 36.7 C (98.1 F) 10/29/2020 8:14 PM CDT Respiratory Rate 20 10/29/2020 8:14 PM CDT Oxygen Saturation 98% 10/29/2020 8:14 PM CDT Inhaled Oxygen Concentration - - Weight 58.9 kg (129 lb 13.6 oz) 10/29/2020 8:14 PM CDT Height 165.1 cm (5' 5 ) 10/29/2020 8:14 PM CDT Body Mass Index 21.61 10/29/2020 8:14 PM CDT Plan of Treatment Health Maintenance Due Date Last Done Comments Cervical Cancer Screening Pa p Smear (Age 30 to 64) Every 3 Years 1985 Annual Physical 1988 Pneumococcal Vaccine: Pediat rics (0 to 5 Years) and At-Risk Patients (6 to 64 Years) (1 of 2 - PCV) 12/02/1991 Hepatitis C 12/02/2003 DTaP, Tdap and Td Vaccines ( 1 - Tdap) 2004 Hepatitis B Vaccines (1 of 3 - 19+ 3-dose series) 2004 Cervical Cancer Screening Pa p with HPV Testing (Age 30 to 64) Every 5 Years 12/02/2015 Cervical Cancer Screening with HPV 12/02/2015 COVID-19 Vaccine (2023-2 5 season) 2023 Influenza Adult (#1) 2024 HPV Vaccines Aged Out No longer eligi ble based on patient's age to complete this topic Meningococcal B Vaccine Aged Out No l onger eligible based on patient's age to complete this topic Meningococcal Vaccine Aged Out No javon nakul eligible based on patient's age to complete this topic RSV Immunizations Under 20 Months Aged Out No longer eligible based on patient's age to complete this topic Care Teams Foreign Service Officer Relationship Specialty Start Date End Date None, Provider, PCP - General 10/29/20
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
--- OUTSIDE RECORDS SUMMARY | 2024-07-10 06:18 | XMS_ITS | Clinical Summary ---
Author Organization [facility] Address [address] [place] [place] [address] Care Team Providers Care Sample Patternmaker Name Role Phone Cory Ho MD Primary Care Provider [phone] Source Comments [facility] Affiliates and Associated Physician Practices is amultiple site organization consisting of ambulatory clinics and hospital sitesin [place], [place], [place] and [place]. This disclosure is being madepursuant to the Care Everywhere program and may not contain all information available regarding this patient. Last updated 18.[facility] Allergies Active Allergy Reactions Criticality Noted Date [...] 36.8 C (98.3 F) 03/19/2015 12:23 AM SECURITY AND PRIVACY CONSULTANT Respiratory Rate 16 03/19/2015 12:23 AM SECURITY AND PRIVACY CONSULTANT Oxygen Saturation 99% 03/19/2015 12:23 AM SECURITY AND PRIVACY CONSULTANT Inhaled Oxygen Concentration - - Weight 58.5 [...] 4:18 PM 11/02/2012 6:44 PM Care Teams Sample Patternmaker Relationship Specialty Start Date End Date Cory Ho MD [address] [place] [address] PCP - General 05/14/20
--- OUTSIDE RECORDS SUMMARY | 2024-07-10 06:18 | XMS_ITS | Clinical Summary ---
Author Organization [facility] Address [address] [place] [address] Care Team Providers Care Machine Cloth Examiner Name Role Phone None, Provider MD Primary [...] age to complete this topic Care Teams Machine Cloth Examiner Relationship Specialty Start Date End Date None, Provider, PCP - General 10/29/20
--- OUTSIDE RECORDS SUMMARY | 2024-07-10 06:18 | XMS_ITS | Referral Summary ---
Author Organization [facility] Address [address] [place] [address] Care Team Providers Care Public Records Researcher Name Role Phone Raza Schmidt MD Primary Care Provider [phone] Encounters Date Type Department Care Team Description 04/16/2024 3:45 PM COMMERCIAL ENGINEER Office Visit [facility] Convenient Care at [address] [address] Aretha Rojas NP Influenza A [...] on file Legal Sex Female 9:02 AM COMMERCIAL ENGINEER Gender Identity Not on file Sexual Orientation Not on file Last Filed Vital Signs Vital Sign Reading Time Taken Comments Blood Pressure 110/68 04/16/2024 4:11 PM COMMERCIAL ENGINEER Pulse 80 04/16/2024 4:11 PM COMMERCIAL ENGINEER Temperature 37.1 C (98.8 F) 04/16/2024 4:11 PM COMMERCIAL ENGINEER Respiratory Rate 18 04/16/2024 4:11 PM COMMERCIAL ENGINEER Oxygen Saturation 98% 04/16/2024 4:11 PM COMMERCIAL ENGINEER Inhaled Oxygen Concentration - - Weight 61.7 kg (136 lb) 04/16/2024 4:11 PM COMMERCIAL ENGINEER Height 165.1 cm (5' 5 ) 04/05/2019 1:00 AM COMMERCIAL ENGINEER Body Mass Index 22.63 04/05/2019 1:00 AM COMMERCIAL ENGINEER Plan of Treatment Not on file Procedures Procedure Name Priority Date/Time Associated Diagnosis Comments POCT RAPID RSV (CPT 91545) Routine 04/16/2024 4:28 PM COMMERCIAL ENGINEER Influenza A POCT RAPID STREP Routine 04/16/2024 4:25 PM COMMERCIAL ENGINEER Influenza A POC INFLUENZA A/B, COVID-19 ANTIGEN Routine 04/16/2024 4:24 PM COMMERCIAL ENGINEER Influenza A from Last 3 Months Results * POCT rapid RSV (04/16/2024 4:28 PM COMMERCIAL ENGINEER) Rapid RSV, POC Negative Negative Lot Number 1 QC Control Line Acceptable Swab 04/16/2024 4:28 PM COMMERCIAL ENGINEER Aretha Rojas SUGAR TRUCKER POINT OF CARE TEST ORDERABLES F inal Result * POCT rapid strep A (04/16/2024 4:25 PM COMMERCIAL ENGINEER) [facility] Rapid Strep A, POC Negative Negative Swab 04/16/2024 4:25 PM COMMERCIAL ENGINEER us Aretha Rojas SUGAR TRUCKER POINT OF CARE TEST ORDERABLES F inal Result * (ABNORMAL) POC Influenza A/B, COVID-19 antigen (04/16/2024 4:24 PM COMMERCIAL ENGINEER) [facility] Influenza A Ag, POC Positive(A) Negative [facility] Influenza B Ag, POC Negative Negative [facility] COVID-19 Ag POC Presumptive Negative Presumptive Negative, Invalid [facility] Nasal 04/16/2024 4:24 PM COMMERCIAL ENGINEER Aretha Rojas SUGAR TRUCKER POINT OF CARE TEST ORDERABLES F inal Result Performing Organization Address City/State/[facility] Co de Phone Number [facility] [address] [place] [address], [facility] from Last 3 Months Insurance [employer] OPEN ACCESS [employer] OPEN ACCESS [facility] HMO/PPO Address: [address] [address] [place] [address] Care Teams Public Records Researcher Relationship Specialty Start Date End Date Raza Schmidt MD PCP - General 12/25/14
--- OUTSIDE RECORDS SUMMARY | 2024-07-10 06:18 | XMS_ITS | Clinical Summary ---
Author Organization [facility] Address [address] [place] [address] Care Team Providers Care Cigar Packing Examiner Name Role Phone Raza Schmidt MD Primary Care Provider [phone] Allergies Active Allergy Reactions Criticality Noted Date [...] Department Care Team Description 04/16/2024 3:45 PM SPIN INSTRUCTOR Office Visit [facility] Medical Group [facility] Care at [address] [address] Aretha Rojas NP Influenza A (Primary Dx) from Last 3 Months Surgical History Surgery Date Site/Laterality Comments LAPAROSCOPY laproscopy OTHER SURGICAL HISTORY endometerosis: laproscopy x 3 OTHER SURGICAL HISTORY Hysteroscopies, cysts [place] LAPS ABD PRTM&OMENTUM DX W/WO SPEC BR/WA SPX Laparoscopy (Diagnostic) - [phone] (Added by TW Conv) [place] UNLISTED PX FEMALE GENITA L SYSTEM NONOBSTETRICAL [...] on file Legal Sex Female 9:02 AM SPIN INSTRUCTOR Gender Identity Not on file Sexual Orientation Not on file Obstetrics History Last Filed Vital Signs Vital Sign Reading Time Taken Comments Blood Pressure 110/68 04/16/2024 4:11 PM SPIN INSTRUCTOR Pulse 80 04/16/2024 4:11 PM SPIN INSTRUCTOR Temperature 37.1 C (98.8 F) 04/16/2024 4:11 PM SPIN INSTRUCTOR Respiratory Rate 18 04/16/2024 4:11 PM SPIN INSTRUCTOR Oxygen Saturation 98% 04/16/2024 4:11 PM SPIN INSTRUCTOR Inhaled Oxygen Concentration - - Weight 61.7 kg (136 lb) 04/16/2024 4:11 PM SPIN INSTRUCTOR Height 165.1 cm (5' 5 ) 04/05/2019 1:00 AM SPIN INSTRUCTOR Body Mass Index 22.63 04/05/2019 1:00 AM SPIN INSTRUCTOR Plan of Treatment Health Maintenance Due Date [...] Associated Diagnosis Comments POCT RAPID RSV (CPT 92074) Routine 04/16/2024 4:28 PM SPIN INSTRUCTOR Influenza A POCT RAPID STREP Routine 04/16/2024 4:25 PM SPIN INSTRUCTOR Influenza A POC INFLUENZA A/B, COVID-19 ANTIGEN Routine 04/16/2024 4:24 PM SPIN INSTRUCTOR Influenza A from Last 3 Months Results * POCT rapid RSV (04/16/2024 4:28 PM SPIN INSTRUCTOR) Rapid RSV, POC Negative Negative Lot Number 1 QC Control Line Acceptable Swab 04/16/2024 4:28 PM SPIN INSTRUCTOR Aretha Rojas PLATFORM ARCHITECT POINT OF CARE TEST ORDERABLES F inal Result * POCT rapid strep A (04/16/2024 4:25 PM SPIN INSTRUCTOR) Rapid Strep A, POC Negative Negative Swab 04/16/2024 4:25 PM SPIN INSTRUCTOR Aretha Rojas PLATFORM ARCHITECT POINT OF CARE TEST ORDERABLES F inal Result * (ABNORMAL) POC Influenza A/B, COVID-19 antigen (04/16/2024 4:24 PM SPIN INSTRUCTOR) Influenza A Ag, POC Positive(A) Negative [facility] Influenza B Ag, POC Negative Negative [facility] COVID-19 Ag POC Presumptive Negative Presumptive Negative, Invalid [facility] Nasal 04/16/2024 4:24 PM SPIN INSTRUCTOR Aretha Rojas PLATFORM ARCHITECT POINT OF CARE TEST ORDERABLES F inal Result Performing Organization Address City/State/[facility] Co de Phone Number [facility] [address] [place] [address], [facility] from Last 3 Months Insurance [employer] OPEN ACCESS [employer] OPEN ACCESS [facility] HMO/PPO Address: [address] [address] [place] [address] Care Teams Cigar Packing Examiner Relationship Specialty Start Date End Date Raza Schmidt MD PCP - General 12/25/14
[2024-07-10 07:02] VITALS: BP 132/84; PULSE 68; RESP 16; O2SAT 100
[2024-07-10 07:03] VITALS: BP 132/84; PULSE 68; RESP 16; O2SAT 100
== END 2024-07-10 07:10 | disposition home or self-care (01) ==
PROVIDERS: Emergency Provider Emergency Medicine
DX: S52.502A Unspecified fracture of the lower end of left radius, initial encounter for closed fracture (principal); S00.12XA Contusion of left eyelid and periocular area, initial encounter; F41.9 Anxiety disorder, unspecified; J45.909 Unspecified asthma, uncomplicated; Y04.0XXA Assault by unarmed brawl or fight, initial encounter
CPT/HCPCS: 29125; 70450; 70486; 73110; 73130; 73200; 99284

== ENCOUNTER 2025-02-04 12:22 | Emergency (ER) | payer OTHER, SELFPAY ==
[2025-02-04] VITALS (12 sets, daily range): BP systolic 127–140; BP diastolic 89–103; PULSE 68–100; RESP 15–22; TEMP 37; O2SAT 99–100
--- NOTE | ~2025-02-04 | CT_ITS ---
CT abdomen pelvis w con INDICATION:abd pain/bloating . COMPARISON: None. TECHNIQUE: Axial images of the abdomen and pelvis were obtained following infusion of 100 mL Isovue 300. Dose optimization technique was utilized. FINDINGS: The lung bases are clear. The liver parenchyma is unremarkable. No intrahepatic mass or ductal dilatation is evident. The gallbladder is unremarkable. The pancreas and spleen are normal in appearance. The adrenal glands are symmetric in size. The kidneys demonstrate symmetric uptake and excretion of contrast. No cystic mass is evident. There is no solid mass. There is no hydronephrosis. Evaluation of the stomach and bowel loops are limited due to lack of oral contrast. The appendix is not visualized however no secondary signs of appendicitis are identified. There are no bowel obstruction. The bladder and rectum are normal. IUD is noted in the uterus. 3 cm right adnexal cyst is noted. No free intraperitoneal fluid or air is evident. There is no significant retroperitoneal lymphadenopathy. The aorta, visceral vessels and renal arteries demonstrate normal caliber and patency. The lower thoracic and lumbar vertebrae are in normal alignment. IMPRESSION: No acute abnormality is noted in the abdomen and pelvis. All CT scans at this facility are performed using low dose modulation techniques as appropriate to perform exam including the following: automated exposure control; use of iterative reconstruction technique; adjustment of the mA and/or kV according to patient size (this includes techniques or standardized protocols for targeted exams where dose is matched to indication/reason for exam). Reviewed, dictated and finalized at location S. IMPRESSION: No acute abnormality is noted in the abdomen and pelvis. All CT scans at this facility are performed using low dose modulation techniqu es as appropriate to perform exam including the following: automated exposure c ontrol; use of iterative reconstruction technique; adjustment of the mA and/or kV according to patient size (this includes techniques or standardized protocol s for targeted exams where dose is matched to indication/reason for exam).
--- NOTE | ~2025-02-04 | XR_ITS ---
EXAMINATION: XR chest 2V 02/04/2025 12:55 INDICATION: Chest pain and shortness of breath PROCEDURE: 2 view chest COMPARISON: No prior studies for comparison. FINDINGS: The lungs are clear. The cardiomediastinal silhouette is within normal limits. There are no pleural effusions. There is no pneumothorax suspected. IMPRESSION: 1: NO ACUTE CARDIOPULMONARY DISEASE. Reviewed, dictated and finalized at location O.
--- NOTE | 2025-02-04 12:23 | ECG_ITS ---
Test Date: 2025-02-04 12:27:19 Measurements Intervals [place] Rate: 103 P: 79 IL: 133 QRS: 64 QRSD: 77 T: 41 QT: 331 QTc: 435 Interpretive Statements SINUS TACHYCARDIA LOW QRS VOLTAGE IN PRECORDIAL LEADS POSSIBLE RIGHT VENTRICULAR CONDUCTION DELAY BORDERLINE T WAVE ABNORMALITY- ANTERIOR LEADS BASELINE ARTIFACT- I, II, III, AVR, AVL, AVF BORDERLINE ECG No previous ECG available for comparison Electronically Signed On 02-04-2025 13:41:05 CDT by Candido Joyce D.O.
[2025-02-04 12:48] LABS: Hematocrit 39.1 % (37.0-47.0); Hemoglobin 13.2 g/dL (12.0-15.0); Immature Granulocyte Percent A 0.4 % (0-0.5); Lymphocytes Absolute Auto 1.29 K/mm3 (0.9-3.2); Mean Corpuscular HGB Conc 33.8 g/dl (32-36); Mean Corpuscular Hemoglobin 36.1 pg (26-34); Mean Corpuscular Volume 106.8 fl (80-100); Nucleated Red Blood Cells Absolute Auto 0.000 K/mm3 (0.0-0.012); Nucleated Red Blood Cells Perc 0.0 % (0.0-0.2); Platelet Count Result 162 k/mm3 (150-375); Red Blood Count 3.66 M/mm3 (4.2-5.4); White Blood Count 7.9 K/mm3 (4.5-10.0)
[2025-02-04 13:01] LABS: Alanine Aminotransferase 68 U/L (6-35); Albumin Level 3.9 g/dL (3.5-5.1); Alkaline Phosphatase 64 U/L (38-126); Anion Gap 6 mmol/L (4-12); Aspartate Amino Transferase 65 U/L (14-36); Bilirubin,Total 0.6 mg/dL (0.2-1.3); Blood Urea Nitrogen 9 mg/dL (7-17); Calcium 8.0 mg/dL (8.4-10.2); Carbon Dioxide 26 mmol/L (22-30); Chloride 103 mmol/L (98-107); Estimated CRCL calculation 93 ml/min; Estimated Glomerular Filt Rate > 60; Glucose 105 mg/dL (65-110); Lipase 85 U/L (23-300); Potassium 3.5 mmol/L (3.4-5.0); Sodium 135 mmol/L (137-145); Total Protein 7.0 g/dL (6.3-8.2)
[2025-02-04 13:02] LABS: INR 1.0; Partial Thromboplastin Time 25.1 Seconds (22.3-36.8); Prothrombin Time 13.5 Seconds (11.1-14.7)
[2025-02-04 13:12] LABS: Troponin I < 0.012 ng/mL (0.000-0.034)
[2025-02-04 13:40] LABS: Macrocytosis 1+ (NORMAL); Schistocytes None Seen
--- NOTE | 2025-02-04 14:22 | ED.CHESTPAIN ---
HPI - Chest Pain General Chief Complaint: Chest Pain <Ronit Benoit PA-C - Last Filed: 02/04/25 14:28> Stated Complaint: chest pain <Ronit Benoit PA-C - Last Filed: 02/04/25 14:28> Time Seen by Provider: 02/04/25 14:22 <Ronit Benoit PA-C - Last Filed: 02/04/25 14:28> Focused HPI: Patient is a 39 y/o who presents the ED with multiple complaints. Reports her urine became orange colored 3 nights ago. Denies dysuria. She then developed tightness in her chest last night, across her midsternal chest, radiated down her L arm. CP was persistent this morning. Reports family history of heart disease. Patient also complains of diffuse upper abdominal pain/bloating, upper back pain, headache, lightheadedness. Has been taking Ibuprofen for pain but denies improvement. Denies sick contacts, fevers. GENERAL: Well-appearing, well-nourished, and in no acute distress. HEAD: Normocephalic, atraumatic. CHEST: Clear to auscultation. ?No respiratory distress. HEART: Regular rate and rhythm.? ABD: No significant focal tenderness. Normoactive BS NEURO: ?Alert and oriented x3. Patient screened in triage and initial orders placed.? ?Additional care and disposition to be based upon?diagnostic testing and treatment. <Ronit Benoit PA-C - Last Filed: 02/04/25 14:28> Source: patient <Ronit Benoit PA-C - Last Filed: 02/04/25 14:28> Mode of arrival: ambulatory <Ronit Benoit PA-C - Last Filed: 02/04/25 14:28> Limitations: no limitations <Ronit Benoit PA-C - Last Filed: 02/04/25 14:28> History of Present Illness HPI narrative: Agree with HPI. In general she has illness of her entire body there are nonspecific. <Bandar Mendiola MD - Last Filed: 02/04/25 17:20> Related Data Home Medications: Home Medications ?Medication ?Instructions ?Recorded ?Confirmed ?Last Taken ?Type alprazolam 0.5 mg tablet 0.5 mg PO TID PRN Sleep 02/25/23 02/25/23 Unknown History cyclobenzaprine 10 mg tablet 10 mg PO TID PRN restless legs 02/25/23 02/25/23 Unknown History omeprazole 40 mg capsule,delayed 40 mg PO DAILY 02/25/23 02/25/23 02/24/23 22:00 History release <Ronit Benoit PA-C - Last Filed: 02/04/25 14:28> Allergies/Adverse Reactions: Allergies Allergy/AdvReac Type Severity Reaction Status Date / Time sulfamethoxazole (From Allergy Hives Verified 02/04/25 12:22 Bactrim) trimethoprim (From Bactrim) Allergy Hives Verified 02/04/25 12:22 <Ronit Benoit PA-C - Last Filed: 02/04/25 14:28> Review of Systems Review of Systems: All systems reviewed & are unremarkable except as noted in HPI and below <Bandar Mendiola MD - Last Filed: 02/04/25 17:20> Constitutional: Constitutional: Reports no additional constitutional complaints <Bandar Mendiola MD - Last Filed: 02/04/25 17:20> ENT: Reports system reviewed and no additional complaints, except as documented <Bandar Mendiola MD - Last Filed: 02/04/25 17:20> Cardiovascular: Cardiovascular: Reports no additional cardiovascular complaints <Bandar Mendiola MD - Last Filed: 02/04/25 17:20> Respiratory: Respiratory: Reports no additional respiratory complaints <Bandar Mendiola MD - Last Filed: 02/04/25 17:20> Gastrointestinal: Gastrointestinal: Reports no additional gastrointestinal complaints <Bandar Mendiola MD - Last Filed: 02/04/25 17:20> Musculoskeletal: Musculoskeletal: Reports no additional musculoskeletal complaints <Bandar Mendiola MD - Last Filed: 02/04/25 17:20> PMFSH Past Medical History Medical History: Medical History (Updated 02/04/25 @ 17:19 by Bandar Mendiola MD) Anxiety Asthma <Ronit Benoit PA-C - Last Filed: 02/04/25 14:28> Social History Social History: Social History Smoking status: Current every day smoker Tobacco type: cigarettes Second hand tobacco smoke exposure: Yes Substance use: current Lack of Transportation: No Lack of Food: Never True Current Housing: I Have Housing Concerned About Future Housing: No Difficulty Paying Gas/Electric Bills: No Difficulty Paying for Meds: No Currently Unemployed: No Education: Associate Degree Difficulty w/ Childcare or Family Care: No Spiritual care concerns: No <Ronit Benoit PA-C - Last Filed: 02/04/25 14:28> Exam Narrative: GENERAL: Well-appearing, well-nourished, and in no acute distress. HEAD: Normocephalic, atraumatic. ENT: Mucous membranes moist. CHEST: Clear to auscultation. No respiratory distress. HEART: Regular rate and rhythm. Normal peripheral pulses. ABDOMEN: Soft, nontender, nondistended. EXTREMITIES: Normal range of motion. No edema. SKIN: Warm, dry, no rash. NEURO: Alert and oriented x3. PSYCH: Normal mood and affect. <Bandar Mendiola MD - Last Filed: 02/04/25 17:20> Course Course Emergency Course: Patient resting comfortably. Received IV fluid and Toradol. Troponin negative. D-dimer negative. Patient felt to be having ACS or a pulmonary embolism. Urinalysis without infection. Negative COVID swab/influenza swab. CT of abdomen pelvis as well as chest x-ray are unremarkable. Patient is appropriate for discharge home. <Bandar Mendiola MD - Last Filed: 02/04/25 17:20> Vital Signs Vital signs: Vital Signs Temperature 98.6 F 02/04/25 12:29 Pulse Rate 100 02/04/25 12:29 Respiratory Rate 16 02/04/25 12:29 Blood Pressure 135/95 H 02/04/25 12:29 Pulse Oximetry 100 02/04/25 12:29 Oxygen Delivery Room Air 02/04/25 12:29 Temperature 98.6 F 02/04/25 12:29 Pulse Rate 75 02/04/25 15:45 Respiratory Rate 17 02/04/25 15:45 Blood Pressure 127/97 H 02/04/25 15:45 Pulse Oximetry 99 02/04/25 15:45 Oxygen Delivery Room Air 02/04/25 12:29 <Ronit Benoit PA-C - Last Filed: 02/04/25 14:28> Vital Signs Temperature 98.6 F 02/04/25 12:29 Pulse Rate 100 02/04/25 12:29 Respiratory Rate 16 02/04/25 12:29 Blood Pressure 135/95 H 02/04/25 12:29 Pulse Oximetry 100 02/04/25 12:29 Oxygen Delivery Room Air 02/04/25 12:29 Temperature 98.6 F 02/04/25 12:29 Pulse Rate 75 02/04/25 15:45 Respiratory Rate 17 02/04/25 15:45 Blood Pressure 127/97 H 02/04/25 15:45 Pulse Oximetry 99 02/04/25 15:45 Oxygen Delivery Room Air 02/04/25 12:29 <Bandar Mendiola MD - Last Filed: 02/04/25 17:20> MDM - Chest Pain MDM Narrative Medical decision making narrative: MSE by TULIO in triage. <Ronit Benoit PA-C - Last Filed: 02/04/25 14:28> Lab Data Result diagrams: 02/04/25 12:40 02/04/25 12:40 <Ronit Benoit PA-C - Last Filed: 02/04/25 14:28> Labs: Lab Results 02/04/25 02/04/25 02/04/25 Range/Units 12:40 14:40 15:11 WBC 7.9 (4.5-10.0) K/mm3 RBC 3.66 L (4.2-5.4) M/mm3 Hgb 13.2 D (12.0-15.0) g/dL Hct 39.1 (37.0-47.0) % MCV 106.8 H (80-100) fl MCH 36.1 H (26-34) pg MCHC 33.8 (32-36) g/dl RDW 12.3 (11.5-14.5) % Plt Count 162 (150-375) k/mm3 MPV 9.6 (7.4-10.4) fl Immature Gran % (Auto) 0.4 (0-0.5) % Neut % (Auto) 74.8 H (45.5-73.1) % Lymph % (Auto) 16.3 L (18.3-44.2) % Love % (Auto) 7.3 (2.6-8.5) % Eos % (Auto) 1.1 (0-4.4) % Baso % (Auto) 0.1 L (0.2-1.2) % Lymph # (Auto) 1.29 (0.9-3.2) K/mm3 Love # (Auto) 0.6 (0.1-0.6) K/mm3 Eos # (Auto) 0.1 (0-0.3) K/mm3 Baso # (Auto) 0.0 (0.0-0.1) K/mm3 Abs Immat Gran (auto) 0.03 (0.00-0.031) K/mm3 Absolute Neuts (auto) 5.9 (1.3-6.7) K/mm3 Absolute Nucleated RBC 0.000 (0.0-0.012) K/mm3 Band Neutrophils % Not Reportable Nucleated RBC % 0.0 (0.0-0.2) % Platelet Estimate Adequate (Adequate) Macrocytosis 1+ (NORMAL) Schistocytes None seen PT 13.5 (11.1-14.7) Seconds INR 1.0 APTT 25.1 (22.3-36.8) Seconds D-Dimer < 0.27 (<0.48) ug/mL Sodium 135 L (137-145) mmol/L Potassium 3.5 (3.4-5.0) mmol/L Chloride 103 (98-107) mmol/L Carbon Dioxide 26 (22-30) mmol/L Anion Gap 6 (4-12) mmol/L BUN 9 (7-17) mg/dL Creatinine 0.62 L (0.7-1.0) mg/dL Estim Creat Clear Calc 93 ml/min Estimated GFR > 60 (59 - ) Glucose 105 (65-110) mg/dL Calcium 8.0 L (8.4-10.2) mg/dL Total Bilirubin 0.6 (0.2-1.3) mg/dL AST 65 H (14-36) U/L ALT 68 H (6-35) U/L Alkaline Phosphatase 64 (38-126) U/L Troponin I < 0.012 (0.000-0.034) ng/mL Total Protein 7.0 (6.3-8.2) g/dL Albumin 3.9 (3.5-5.1) g/dL Lipase 85 (23-300) U/L Urine Color Yellow (Yellow) Urine Appearance Clear (Clear) Urine pH 5.5 (5.0-9.0) Ur Specific [place] 1.021 (1.001-1.035) Urine Protein Negative (Negative) mg/dL Urine Glucose (UA) Negative (Negative) mg/dL Urine Ketones Trace H (Negative) mg/dL Ur Blood (Man) Negative (Negative) Urine Nitrate Negative (Negative) Urine Bilirubin Negative (Negative) Urine Urobilinogen 1.0 (<2.0) mg/dL Leukocyte Esterase Rfl Trace H (Negative) REJI/UL Urine RBC 3-5 H (0-2) /hpf Urine WBC 0-5 (0-3) /hpf Ur Squamous Epith Cells Occasional (Few) /hpf Urine Bacteria None seen /hpf Urine Casts 0-2 POC Urine HCG, Qual Negative (Negative) Influenza A (RT-PCR) Negative (Negative) Influenza B (RT-PCR) Negative (Negative) RSV (RT-PCR) Negative (Negative) SARS-CoV-2 RNA (RT-PCR) Negative (Negative) 02/04/25 Range/Units 15:45 WBC (4.5-10.0) K/mm3 RBC (4.2-5.4) M/mm3 Hgb (12.0-15.0) g/dL Hct (37.0-47.0) % MCV (80-100) fl MCH (26-34) pg MCHC (32-36) g/dl RDW (11.5-14.5) % Plt Count (150-375) k/mm3 MPV (7.4-10.4) fl Immature Gran % (Auto) (0-0.5) % Neut % (Auto) (45.5-73.1) % Lymph % (Auto) (18.3-44.2) % Love % (Auto) (2.6-8.5) % Eos % (Auto) (0-4.4) % Baso % (Auto) (0.2-1.2) % Lymph # (Auto) (0.9-3.2) K/mm3 Love # (Auto) (0.1-0.6) K/mm3 Eos # (Auto) (0-0.3) K/mm3 Baso # (Auto) (0.0-0.1) K/mm3 Abs Immat Gran (auto) (0.00-0.031) K/mm3 Absolute Neuts (auto) (1.3-6.7) K/mm3 Absolute Nucleated RBC (0.0-0.012) K/mm3 Band Neutrophils % Nucleated RBC % (0.0-0.2) % Platelet Estimate (Adequate) Macrocytosis (NORMAL) Schistocytes PT (11.1-14.7) Seconds INR APTT (22.3-36.8) Seconds D-Dimer (<0.48) ug/mL Sodium (137-145) mmol/L Potassium (3.4-5.0) mmol/L Chloride (98-107) mmol/L Carbon Dioxide (22-30) mmol/L Anion Gap (4-12) mmol/L BUN (7-17) mg/dL Creatinine (0.7-1.0) mg/dL Estim Creat Clear Calc ml/min Estimated GFR (59 - ) Glucose (65-110) mg/dL Calcium (8.4-10.2) mg/dL Total Bilirubin (0.2-1.3) mg/dL AST (14-36) U/L ALT (6-35) U/L Alkaline Phosphatase (38-126) U/L Troponin I < 0.012 (0.000-0.034) ng/mL Total Protein (6.3-8.2) g/dL Albumin (3.5-5.1) g/dL Lipase (23-300) U/L Urine Color (Yellow) Urine Appearance (Clear) Urine pH (5.0-9.0) Ur Specific [place] (1.001-1.035) Urine Protein (Negative) mg/dL Urine Glucose (UA) (Negative) mg/dL Urine Ketones (Negative) mg/dL Ur Blood (Man) (Negative) Urine Nitrate (Negative) Urine Bilirubin (Negative) Urine Urobilinogen (<2.0) mg/dL Leukocyte Esterase Rfl (Negative) REJI/UL Urine RBC (0-2) /hpf Urine WBC (0-3) /hpf Ur Squamous Epith Cells (Few) /hpf Urine Bacteria /hpf Urine Casts POC Urine HCG, Qual (Negative) Influenza A (RT-PCR) (Negative) Influenza B (RT-PCR) (Negative) RSV (RT-PCR) (Negative) SARS-CoV-2 RNA (RT-PCR) (Negative) <Ronit Benoit PA-C - Last Filed: 02/04/25 14:28> Lab Results 02/04/25 02/04/25 02/04/25 Range/Units 12:40 14:40 15:11 WBC 7.9 (4.5-10.0) K/mm3 RBC 3.66 L (4.2-5.4) M/mm3 Hgb 13.2 D (12.0-15.0) g/dL Hct 39.1 (37.0-47.0) % MCV 106.8 H (80-100) fl MCH 36.1 H (26-34) pg MCHC 33.8 (32-36) g/dl RDW 12.3 (11.5-14.5) % Plt Count 162 (150-375) k/mm3 MPV 9.6 (7.4-10.4) fl Immature Gran % (Auto) 0.4 (0-0.5) % Neut % (Auto) 74.8 H (45.5-73.1) % Lymph % (Auto) 16.3 L (18.3-44.2) % Love % (Auto) 7.3 (2.6-8.5) % Eos % (Auto) 1.1 (0-4.4) % Baso % (Auto) 0.1 L (0.2-1.2) % Lymph # (Auto) 1.29 (0.9-3.2) K/mm3 Love # (Auto) 0.6 (0.1-0.6) K/mm3 Eos # (Auto) 0.1 (0-0.3) K/mm3 Baso # (Auto) 0.0 (0.0-0.1) K/mm3 Abs Immat Gran (auto) 0.03 (0.00-0.031) K/mm3 Absolute Neuts (auto) 5.9 (1.3-6.7) K/mm3 Absolute Nucleated RBC 0.000 (0.0-0.012) K/mm3 Band Neutrophils % Not Reportable Nucleated RBC % 0.0 (0.0-0.2) % Platelet Estimate Adequate (Adequate) Macrocytosis 1+ (NORMAL) Schistocytes None seen PT 13.5 (11.1-14.7) Seconds INR 1.0 APTT 25.1 (22.3-36.8) Seconds D-Dimer < 0.27 (<0.48) ug/mL Sodium 135 L (137-145) mmol/L Potassium 3.5 (3.4-5.0) mmol/L Chloride 103 (98-107) mmol/L Carbon Dioxide 26 (22-30) mmol/L Anion Gap 6 (4-12) mmol/L BUN 9 (7-17) mg/dL Creatinine 0.62 L (0.7-1.0) mg/dL Estim Creat Clear Calc 93 ml/min Estimated GFR > 60 (59 - ) Glucose 105 (65-110) mg/dL Calcium 8.0 L (8.4-10.2) mg/dL Total Bilirubin 0.6 (0.2-1.3) mg/dL AST 65 H (14-36) U/L ALT 68 H (6-35) U/L Alkaline Phosphatase 64 (38-126) U/L Troponin I < 0.012 (0.000-0.034) ng/mL Total Protein 7.0 (6.3-8.2) g/dL Albumin 3.9 (3.5-5.1) g/dL Lipase 85 (23-300) U/L Urine Color Yellow (Yellow) Urine Appearance Clear (Clear) Urine pH 5.5 (5.0-9.0) Ur Specific [place] 1.021 (1.001-1.035) Urine Protein Negative (Negative) mg/dL Urine Glucose (UA) Negative (Negative) mg/dL Urine Ketones Trace H (Negative) mg/dL Ur Blood (Man) Negative (Negative) Urine Nitrate Negative (Negative) Urine Bilirubin Negative (Negative) Urine Urobilinogen 1.0 (<2.0) mg/dL Leukocyte Esterase Rfl Trace H (Negative) REJI/UL Urine RBC 3-5 H (0-2) /hpf Urine WBC 0-5 (0-3) /hpf Ur Squamous Epith Cells Occasional (Few) /hpf Urine Bacteria None seen /hpf Urine Casts 0-2 POC Urine HCG, Qual Negative (Negative) Influenza A (RT-PCR) Negative (Negative) Influenza B (RT-PCR) Negative (Negative) RSV (RT-PCR) Negative (Negative) SARS-CoV-2 RNA (RT-PCR) Negative (Negative) 02/04/25 Range/Units 15:45 WBC (4.5-10.0) K/mm3 RBC (4.2-5.4) M/mm3 Hgb (12.0-15.0) g/dL Hct (37.0-47.0) % MCV (80-100) fl MCH (26-34) pg MCHC (32-36) g/dl RDW (11.5-14.5) % Plt Count (150-375) k/mm3 MPV (7.4-10.4) fl Immature Gran % (Auto) (0-0.5) % Neut % (Auto) (45.5-73.1) % Lymph % (Auto) (18.3-44.2) % Love % (Auto) (2.6-8.5) % Eos % (Auto) (0-4.4) % Baso % (Auto) (0.2-1.2) % Lymph # (Auto) (0.9-3.2) K/mm3 Love # (Auto) (0.1-0.6) K/mm3 Eos # (Auto) (0-0.3) K/mm3 Baso # (Auto) (0.0-0.1) K/mm3 Abs Immat Gran (auto) (0.00-0.031) K/mm3 Absolute Neuts (auto) (1.3-6.7) K/mm3 Absolute Nucleated RBC (0.0-0.012) K/mm3 Band Neutrophils % Nucleated RBC % (0.0-0.2) % Platelet Estimate (Adequate) Macrocytosis (NORMAL) Schistocytes PT (11.1-14.7) Seconds INR APTT (22.3-36.8) Seconds D-Dimer (<0.48) ug/mL Sodium (137-145) mmol/L Potassium (3.4-5.0) mmol/L Chloride (98-107) mmol/L Carbon Dioxide (22-30) mmol/L Anion Gap (4-12) mmol/L BUN (7-17) mg/dL Creatinine (0.7-1.0) mg/dL Estim Creat Clear Calc ml/min Estimated GFR (59 - ) Glucose (65-110) mg/dL Calcium (8.4-10.2) mg/dL Total Bilirubin (0.2-1.3) mg/dL AST (14-36) U/L ALT (6-35) U/L Alkaline Phosphatase (38-126) U/L Troponin I < 0.012 (0.000-0.034) ng/mL Total Protein (6.3-8.2) g/dL Albumin (3.5-5.1) g/dL Lipase (23-300) U/L Urine Color (Yellow) Urine Appearance (Clear) Urine pH (5.0-9.0) Ur Specific [place] (1.001-1.035) Urine Protein (Negative) mg/dL Urine Glucose (UA) (Negative) mg/dL Urine Ketones (Negative) mg/dL Ur Blood (Man) (Negative) Urine Nitrate (Negative) Urine Bilirubin (Negative) Urine Urobilinogen (<2.0) mg/dL Leukocyte Esterase Rfl (Negative) REJI/UL Urine RBC (0-2) /hpf Urine WBC (0-3) /hpf Ur Squamous Epith Cells (Few) /hpf Urine Bacteria /hpf Urine Casts POC Urine HCG, Qual (Negative) Influenza A (RT-PCR) (Negative) Influenza B (RT-PCR) (Negative) RSV (RT-PCR) (Negative) SARS-CoV-2 RNA (RT-PCR) (Negative) <Bandar Mendiola MD - Last Filed: 02/04/25 17:20> Imaging Data Radiologist's impression: ITS Impressions Chest X-Ray 02/04/25 13:00 IMPRESSION: 1: NO ACUTE CARDIOPULMONARY DISEASE. Abdomen/Pelvis CT 02/04/25 16:11 IMPRESSION: No acute abnormality is noted in the abdomen and pelvis. All CT scans at this facility are performed using low dose modulation techniques as appropriate to perform exam including the following: automated exposure control; use of iterative reconstruction technique; adjustment of the mA and/or kV according to patient size (this includes techniques or standardized protocols for targeted exams where dose is matched to indication/reason for exam). <Bandar Mendiola MD - Last Filed: 02/04/25 17:20> ECG Data EKG #1: ECG completion date: 02/04/25 <Bandar Mendiola MD - Last Filed: 02/04/25 17:20> ECG completion time: 15:40 <Bandar Mendiola MD - Last Filed: 02/04/25 17:20> EKG Interpretation: normal rate (77), sinus rhythm, non-specific ST changes, normal QRS and NL axis <Bandar Mendiola MD - Last Filed: 02/04/25 17:20> Discharge Plan Discharge Clinical Impression: Acute viral syndrome, Headache <Ronit Benoit PA-C - Last Filed: 02/04/25 14:28> Patient Disposition: Home <Ronit Benoit PA-C - Last Filed: 02/04/25 14:28> Condition: Stable <Ronit Benoit PA-C - Last Filed: 02/04/25 14:28> Instructions: Chest Pain (ED), Viral Syndrome (ED) <Ronit Benoit PA-C - Last Filed: 02/04/25 14:28> Additional Instructions: Please return to the emergency department if you develop severe and persistent chest pain, difficulty breathing, dizziness, leg swelling or if you are coughing up blood as these can be signs of a medical emergency. Please call your doctor for a follow up appointment to determine the need for further testing. <Ronit Benoit PA-C - Last Filed: 02/04/25 14:28> Patient Language: Panamanian <Ronit Benoit PA-C - Last Filed: 02/04/25 14:28> Prescriptions: No Action hydrocodone-acetaminophen 5-325 mg tablet 1 tablet PO Q6H PRN (Reason: pain) Qty: 12 0RF cyclobenzaprine 10 mg tablet 10 mg PO TID PRN (Reason: restless legs) omeprazole 40 mg capsule,delayed release(DR/EC) 40 mg PO DAILY alprazolam 0.5 mg tablet 0.5 mg PO TID PRN (Reason: Sleep) <Ronit Benoit PA-C - Last Filed: 02/04/25 14:28> Follow-up/Referrals: Sherry Ferreira DO [Physician, Family Practice] - 1 Week PHYSICIAN,HAZARDOUS SUBSTANCES SCIENTIST [Primary Care Provider, Internal Medicine] <Ronit Benoit PA-C - Last Filed: 02/04/25 14:28> Quality HEART score for chest pain patients History: slightly suspicious <Bandar Mendiola MD - Last Filed: 02/04/25 17:20> ECG: normal <Bandar Mendiola MD - Last Filed: 02/04/25 17:20> Age: < or = to 45 years <Bandar Mendiola MD - Last Filed: 02/04/25 17:20> Risk factors: no risk factors known <Bandar Mendiola MD - Last Filed: 02/04/25 17:20> Troponin: < or = to 1x normal limit <Bandar Mendiola MD - Last Filed: 02/04/25 17:20> Heart score: 0 <Bandar Mendiola MD - Last Filed: 02/04/25 17:20>
[2025-02-04 14:51] LABS: Add Urine Microscopic? YES; Appearance Urine Clear (Clear); Glucose Urine UA Negative (Negative); Leukocyte Esterase Ur Trace LEU/UL (Negative); Nitrate Urine Negative (Negative); Non Pathogenic Casts 0-2; Specific Grav Ur 1.021 (1.001-1.035)
[2025-02-04 15:13] LABS: BEDSIDEPREGUCG Negative (Negative)
[2025-02-04 15:22] LABS: Influenza A QL RT-PCR Negative (Negative); Influenza B QL RT-PCR Negative (Negative); RSV RNA, RT-PCR Negative (Negative); SARS-CoV-2 RNA PCR Negative (Negative)
--- NOTE | 2025-02-04 15:35 | ECG_ITS ---
Test Date: 2025-02-04 15:40:26 Measurements Intervals [place] Rate: 77 P: 55 MO: 129 QRS: 65 QRSD: 82 T: 48 QT: 366 QTc: 416 Interpretive Statements SINUS RHYTHM LOW QRS VOLTAGE IN PRECORDIAL LEADS POSSIBLE RIGHT VENTRICULAR CONDUCTION DELAY BORDERLINE T WAVE ABNORMALITY- ANTERIOR LEADS BASELINE ARTIFACT- I, II, III, AVR, AVL, AVF, V2, V5 BORDERLINE ECG Compared to ECG 02/04/2025 12:27:19 HEART RATE HAS DECREASED Electronically Signed On 02-04-2025 16:07:34 CDT by Candido Joyce D.O.
[2025-02-04] MEDS: SODIUM CHLORIDE 0.9% IV 1,000 ML 999 ML IV CONT (16:08)
[2025-02-04] MEDS: KETOROLAC 30 MG/ML VIAL (*BKC) IV PUSH (16:09)
[2025-02-04 16:20] LABS: Troponin I < 0.012 ng/mL (0.000-0.034)
--- OUTSIDE RECORDS SUMMARY | 2025-02-04 18:52 | XMS_ITS | Clinical Summary ---
Author Organization [facility] Address [address] [place] [id number] Care Team Providers Care Licensed Psychologist Name Role Phone None, Provider MD Primary [...] 8:14 PM CDT Height 165.1 cm (5' 5) 10/29/2020 8:14 PM CDT Body Mass Index 21.61 10/29/2020 8:14 PM CDT Plan of Treatment Health Maintenance Due Date Last Done Comments Cervical Cancer Screening Pa p Smear (Age 30 to 64) Every 3 Years 1985 Annual Physical 1988 Hepatitis C 12/02/2003 DTaP, Tdap and Td Vaccines ( 1 - Tdap) 2004 Hepatitis B Vaccines (1 of 3 - 19+ 3-dose series) 2004 Pneumococcal Vaccine: Pediat rics (0 to 5 Years) and At-Risk Patients (6 to 49 Years) (1 of 2 - PCV) 2004 HPV Vaccines (1 - 3-dose SCD M series) 2012 Cervical Cancer Screening Pa p with HPV Testing (Age 30 to 64) Every 5 Years 12/02/2015 Cervical Cancer Screening with HPV 12/02/2015 COVID-19 Vaccine (2023-2 5 season) 2024 Influenza Adult (#1) 2025 Hepatitis A Vaccines Aged Out No long er eligible based on patient's age to complete this topic Meningococcal B Vaccine Aged Out No l onger eligible based on patient's age to complete this topic Meningococcal Vaccine Aged Out No javon nakul eligible based on patient's age to complete this topic RSV Immunizations Under 20 Months Aged Out No longer eligible based on patient's age to complete this topic Care Teams Licensed Psychologist Relationship Specialty Start Date End Date None, Provider, PCP - General 10/29/20
--- OUTSIDE RECORDS SUMMARY | 2025-02-04 18:52 | XMS_ITS | Patient Health Record ---
Author Organization [facility] Address [address] [facility] [address] [place] [address] Care Team Providers Care Filter Tip Catcher Name Role Phone Zen Cedeno Unavailable [phone] Reason For Referral No Information Medications Medication SIG (Take, Route, Frequency, Duration) Notes Start Date End Date Status Fluconazole 150 MG Tablet Oral Active Azithromycin 250 MG Tablet Oral Active Doxycycline Hyclate 100 MG Capsule Oral Active metroNIDAZOLE 0.75 % Gel Vaginal Active Nitrofurantoin Monohyd Macro 100 MG Capsule Oral Active Amphetamine-Dextroampheta mine 5 MG Tablet Oral Active ID Now COVID-19 Kit In Vitro *[facility] and [facility] Alert[facility]* Active metroNIDAZOLE 500 MG Tablet Oral Active methylPREDNISolone 4 MG Tablet Therapy Pack Oral Active Clindamycin Phosphate 2 % Cream Vaginal Active Plan Of Treatment No Information
--- OUTSIDE RECORDS SUMMARY | 2025-02-04 18:52 | XMS_ITS | Patient Health Record ---
Author Organization [facility] Address [address] [place] [address] Care Team Providers Care Program Associate Name Role Phone Ember Schmidt Primary Care Provider Vishnu Villatoro Unavailable [phone] Jono Rust Unavailable Unavailable Allergies Allergen (clinical drug ingredient) Drug/Non Drug Allergy documented on EMR Reaction Allergy Type Onset Date Status sulphur (uncoded) Unknown Allergy Ac tive sulfamethoxazole / trimethoprim Bactrim Unknown Drug Allergy Active Reason For Referral No Information Medications Medication SIG (Take, Route, Frequency, Duration) Notes Start Date End Date Status Buprenorphine HCl-Naloxone HCl Active Ibuprofen Active Excedrin Extra Strength Active Social History Tobacco Use: Social History Observation Description Date Details (start date - stop date) Never Smoker NA - NA Tobacco Use/Smoking Question Answer Notes Are you a nonsmoker Alcohol Screen (Audit-C) Question Answer Notes Did you have a drink containing alcohol in the p ast year? No Points 0 Interpretation Negative Tobacco use other than smoking: Question Answer Notes Are you an other tobacco user? No Problems Problem Type SNOMED Code ICD Code Onset Dates Problem Status W/U Status Risk Notes Problem Cervical spondylosis without myelopathy (612189721) Spondylosis without myelopathy or radiculopathy, occipito-atlant o-axial region (M47.811) Active confirmed Problem Cervical spondylosis without myelopathy (206179567) Spondylosis without myelopathy or radiculopathy, cervical region (M47.812) Active confirmed Problem Thoracic radiculopathy (34213608) Radiculopathy, thoracic region (M54.14) Active confirmed Plan Of Treatment No Information Insurance Providers Payer Name Payer Address Payer Phone Subscriber Number Group Number Insured Name Patient Relationship to Insured Coverage Start Date Coverage End Date ATTY [employer] [address] [place] [address] [phone] [id number] Jaci Mauricio Self - patient is the insured Medical (General) History Medical History History ICD Code anemia migraine headaches asthma chronic bronchitis anxiety Surgical History Surgery Date(Month/Year) 4 Laparoscopies last 8 years
--- OUTSIDE RECORDS SUMMARY | 2025-02-04 18:53 | XMS_ITS | Clinical Summary ---
Author Organization [facility] Address [address] [place] [address] Care Team Providers Care Pipe Setter Name Role Phone No, Physician Primary Care Provider [phone] Allergies Active Allergy Reactions Criticality Noted Date [...] (07/23/2016): Migraine Endometriosis 01/10/2012 Overview (07/23/2016): Endometriosis Surgical History Surgery Date Site/Laterality Comments LAPAROSCOPY laproscopy OTHER SURGICAL HISTORY endometerosis: laproscopy x 3 OTHER SURGICAL HISTORY Hysteroscopies, cysts DC LAPS ABD PRTM&OMENTUM DX W/WO SPEC BR/WA SPX Laparoscopy (Diagnostic) - [phone] (Added by TW Conv) DC UNLISTED PX FEMALE GENITA L SYSTEM NONOBSTETRICAL Gynecologic Surgery - cyst removal (Added by TW Conv) Medical History Medical History Date Comments Hx Other Medical endometerosis; Comments: AOB 06/10/2014 - Sleep apnea Sleep apnea Asthma Asthma Anxiety disorder Anxiety Hx Other Medical Endometriosis, chronic bronchitis; Comments: [facility] 12/05/2014 - Hx Other Medical Syncope; Commen ts: [facility] 12/05/2014 - Hx Other Medical Thrush; Comment s: [facility] 12/05/2014 - Endometriosis of uterus Adenomyo sis [...] on file Legal Sex Female 9:02 AM HR SYSTEMS ANALYST Gender Identity Not on file Sexual Orientation Not on file Obstetrics History Last Filed Vital Signs Vital Sign Reading Time Taken Comments Blood Pressure 110/68 04/16/2024 4:11 PM HR SYSTEMS ANALYST Pulse 80 04/16/2024 4:11 PM HR SYSTEMS ANALYST Temperature 37.1 C (98.8 F) 04/16/2024 4:11 PM HR SYSTEMS ANALYST Respiratory Rate 18 04/16/2024 4:11 PM HR SYSTEMS ANALYST Oxygen Saturation 98% 04/16/2024 4:11 PM HR SYSTEMS ANALYST Inhaled Oxygen Concentration - - Weight 61.7 kg (136 lb) 04/16/2024 4:11 PM HR SYSTEMS ANALYST Height 165.1 cm (5' 5) 04/05/2019 1:00 AM HR SYSTEMS ANALYST Body Mass Index 22.63 04/05/2019 1:00 AM HR SYSTEMS ANALYST Plan of Treatment Health Maintenance Due Date Last Done Comments Cervical Cancer Screening 1985 Depression Screening 1985 Hepatitis C Screening 1985 Varicella Vaccines (1 of 2 - 13+ 2-dose series) 1998 Hepatitis B Screening 12/02/2003 Regular Well Visit/Exam 18-64 12/02/2003 Pneumococcal vaccine <65 (1 of 2 - PCV) 2004 HPV Vaccines (1 - 3-dose SCDM series) 2012 Influenza Vaccine (#1) 2024 01/03/2023 DTaP/Tdap/Td Vaccine (2 - Td or Tdap) 01/03/2033 Insurance Thryve OPEN ACCESS Care Teams Pipe Setter Relationship Specialty Start Date End Date No, Physician PCP - General 07/10/24
--- OUTSIDE RECORDS SUMMARY | 2025-02-04 18:53 | XMS_ITS | Clinical Summary ---
Author Organization [facility] Address [address] [place] [address] Care Team Providers Care Inpatient Nursing Aide Name Role Phone Cory Ho MD Primary Care Provider [phone] Source Comments [facility] Affiliates and Associated Physician Practices is amultiple site organization consisting of ambulatory clinics and hospital sitesin [place], [place], [place] and [place]. This disclosure is being madepursuant to the Care Everywhere program and may not contain all information available regarding this patient. Last updated 18.[facility] Allergies Active Allergy Reactions Criticality Noted Date Comments Adhesive Sensitivity 07/27/2011 Sulfamethoxazole W-Trimethoprim 04/2014 Latex Rash Medium 08/11/2022 Sulfa Drugs Urticaria 02/22/2015 Medications * Be aware that medications may not be up to date on this document. Alwaysverify current medications with the patient. predniSONE (DELTASONE) 50 MG tablet Take 1 Tab by mouth once daily 5 Tab 0 5 Active Additional Information Patient not taking.Reported on 08/11/2022 ibuprofen (MOTRIN) 600 MG tablet Take 1 Tab by mouth every 6 hours as needed for Pain 20 Tab 0 5 Active Additional Information Patient not taking.Reported on 08/11/2022 Vit-DSS-Fe Fum-FA ( vitamin with iron) tabletIndicatio ns: Take 1 (one) tablet by mouth once daily Reasons: Active albuterol HFA (Proventil; Ventolin; Proair) 108 (90 Base) MCG/ACT inhalerIndicati ons:Asthma Inhale 2 (two) puffs by mouth every [...] 0.6 oz pur e alcohol) doesnt drink Comments No Sex and Gender Information Value Date Recorded Sex Assigned at Not on file Legal Sex Female 11:59 AM DIRECTOR OF SALES MARKETING Gender Identity Not on file Sexual Orientation Not on file Last Filed Vital Signs Vital Sign Reading Time Taken Comments Blood Pressure 121/72 08/11/2022 1:11 PM CDT Pulse 100 08/11/2022 1:11 PM CDT Temperature 36.8 C (98.3 F) 03/19/2015 12:23 AM DIRECTOR OF SALES MARKETING Respiratory Rate 16 03/19/2015 12:23 AM DIRECTOR OF SALES MARKETING Oxygen Saturation 99% 03/19/2015 12:23 AM DIRECTOR OF SALES MARKETING Inhaled Oxygen Concentration - - Weight 58.5 kg (129 lb) 08/11/2022 1:11 PM CDT Height 165.1 cm (5' 5) 08/11/2022 1:11 PM CDT Body Mass Index 21.47 08/11/2022 1:11 PM CDT Plan of Treatment Health Maintenance Due Date Last Done Comments HEPATITIS C SCREENING 11/27/2003 DTAP/TDAP/TD VACCINES (1 - Tdap) 2004 HEPATITIS B VACCINE (1 of 3 - 19+ 3-dose series) 2004 PNEUMOCOCCAL VACCINE (1 of 2 - PCV) 2004 PAP SMEAR 2006 HPV VACCINE (1 - 3-dose SCDM series) 2012 DEPRESSION SCREENING 04/18/2024 COVID-19 VACCINE (2 - 2024-2 6 season) 2024 04/27/2021 INFLUENZA VACCINE (#1) 2024 ZOSTER VACCINE (1 of 2) 12/02/2035 HIV [...] on patient's age to complete this topic Insurance [employer] Advance Directives * FULL RESUSCITATION (Latest Code Status on File) Date Activated Date Inactivated Comments 11/01/2012 4:18 PM 11/02/2012 6:44 PM Care Teams Inpatient Nursing Aide Relationship Specialty Start Date End Date Cory Ho MD [id number] [place] [address] PCP - General 05/14/20
== END 2025-02-04 17:40 | disposition home or self-care (01) ==
PROVIDERS: Physician Assistant; Emergency Provider Emergency Medicine
DX: B34.9 Viral infection, unspecified (principal); R51.9 Headache, unspecified; Z20.822 Contact with and (suspected) exposure to COVID-19; F17.210 Nicotine dependence, cigarettes, uncomplicated; F41.9 Anxiety disorder, unspecified; J45.909 Unspecified asthma, uncomplicated
CPT/HCPCS: 36415; 71046; 74177; 80053; 81001; 81025; 83690; 84484; 85025; 85380; 85610; 85730; 87637; 93005; 96361; 96374; 99284; J1885; J7030; Q9967

== ENCOUNTER 2025-02-06 12:11 | Emergency (ER) | payer MEDICAID, SELFPAY ==
[2025-02-06 12:20] VITALS: BP 122/88; PULSE 101; RESP 16; TEMP 36.2; O2SAT 100
--- NOTE | 2025-02-06 12:33 | ED.DENTAL ---
HPI - Dental/Oral General Chief complaint: Dental/Oral Stated complaint: DENTAL ABSCESS Time Seen by Provider: 02/06/25 12:33 Source: patient Mode of arrival: ambulatory Limitations: no limitations History of Present Illness HPI Narrative: 39-year-old female presents with complaint of left-sided dental pain with swelling. Symptoms started approximately 2 days ago. Afebrile. Patient currently does not have a dentist. All systems reviewed and negative except as noted above. Related Data Home Medications ?Medication ?Instructions ?Recorded ?Confirmed ?Last Taken ?Type alprazolam 0.5 mg tablet 0.5 mg PO TID PRN Sleep 02/25/23 02/06/25 Unknown History cyclobenzaprine 10 mg tablet 10 mg PO TID PRN restless legs 02/25/23 02/06/25 Unknown History omeprazole 40 mg capsule,delayed 40 mg PO DAILY 02/25/23 02/06/25 02/24/23 22:00 History release amoxicillin .ROUTE 02/06/25 Unknown History Allergies Allergy/AdvReac Type Severity Reaction Status Date / Time sulfamethoxazole (From Allergy Hives Verified 02/06/25 12:30 Bactrim) trimethoprim (From Bactrim) Allergy Hives Verified 02/06/25 12:30 PMFSH Past Medical History Medical History (Updated 02/06/25 @ 12:46 by Ifeoma Block APRN) Anxiety Asthma Social History Social History Smoking status: Current every day smoker Tobacco type: cigarettes Second hand tobacco smoke exposure: Yes Substance use: current Lack of Transportation: No Lack of Food: Never True Current Housing: I Have Housing Concerned About Future Housing: No Difficulty Paying Gas/Electric Bills: No Difficulty Paying for Meds: No Currently Unemployed: No Education: Associate Degree Difficulty w/ Childcare or Family Care: No Spiritual care concerns: No Comments At time of signature, agree with nursing past medical, surgical, social and family history. There is no relevant family history pertinent to the presenting complaint. Exam Narrative: GENERAL: This is a well-nourished, well-developed patient, in no apparent distress. HEAD: normocephalic, atraumatic. EYES: PERRL. Sclera clear/white. Vision is grossly intact. EARS: External ears normal NOSE: External nose normal MOUTH: tooth #11 decayed and broken. tender on palpation. swelling noted to L cheek. no fluctuace. NECK: Neck supple, non-tender without lymphadenopathy, masses or thyromegaly. CARDIOVASCULAR: Regular rate and rhythm without murmurs, gallops, or rubs. RESPIRATORY: Clear to auscultation. Breath sounds equal bilaterally. No wheezes, rales, or rhonchi. SKIN: warm, Dry, intact with no suspicious lesions or rash, good texture and turgor. NEURO: awake, alert, and oriented to person, place and time. There were no obvious focal neurologic abnormalities. EXTREMITIES: No joint tenderness, effusion, or edema noted. Course Course Level of Care: Express Care Visit Vital Signs Vital signs: Vital Signs Temperature 36.2 C L 02/06/25 12:20 Pulse Rate 101 H 02/06/25 12:20 Respiratory Rate 16 02/06/25 12:20 Blood Pressure 122/88 02/06/25 12:20 Pulse Oximetry 100 02/06/25 12:20 Temperature 36.2 C L 02/06/25 12:20 Pulse Rate 101 H 02/06/25 12:20 Respiratory Rate 16 02/06/25 12:20 Blood Pressure 122/88 02/06/25 12:20 Pulse Oximetry 100 02/06/25 12:20 Reviewed MDM - Dental/Oral MDM Narrative Medical decision making narrative: Patient is well-appearing, nontoxic. Afebrile. Will treat with antibiotic. Patient giving dental clinic list. Discharge Plan Discharge Clinical Impression: Dental infection Patient Disposition: Home Condition: Stable Instructions: Antibiotic Form, Dental Abscess (ED) Additional Instructions: Take antibiotic as prescribed until gone. Take ibuprofen every 6-8 hours as needed for pain. Follow-up with dentist at next available appointment. Patient Language: Wallisian Prescriptions: New ibuprofen 800 mg tablet 800 mg PO Q6-8H PRN (Reason: pain) Qty: 30 0RF amoxicillin-pot clavulanate 875-125 mg tablet 1 tablet PO Q12H 10 Days Qty: 20 0RF No Action amoxicillin .ROUTE cyclobenzaprine 10 mg tablet 10 mg PO TID PRN (Reason: restless legs) omeprazole 40 mg capsule,delayed release(DR/EC) 40 mg PO DAILY alprazolam 0.5 mg tablet 0.5 mg PO TID PRN (Reason: Sleep) Follow-up/Referrals: PHYSICIAN,COMPUTER SERVICE TECHNICIAN [Primary Care Provider, Internal Medicine] Time of Disposition: 12:46
== END 2025-02-06 12:50 | disposition home or self-care (01) ==
PROVIDERS: Emergency Provider Nurse Practitioner Family
DX: K04.7 Periapical abscess without sinus (principal); F17.210 Nicotine dependence, cigarettes, uncomplicated; J45.909 Unspecified asthma, uncomplicated; F41.9 Anxiety disorder, unspecified
CPT/HCPCS: 99213; G0463